=== PATIENT | male | born 1950 | race Caucasian/White ===

== ENCOUNTER 2018-01-28 20:22 | Inpatient (IN) ==
[2018-01-28] MEDS ORDERED: Naloxone 0.4 MG/ML INJ IVP PRN (23:49)
--- NOTE | 2018-01-29 | Internal Med History&Physical ---
<Glenn Dennis - Last Filed: 01/28/18 23:55> Date of Encounter: 01/28/18 Time of Encounter: 23:56 Internal Medicine - H&P: HPI Chief complaint: Slow heart rate Admitted From: Hospital to Hospital Transfer Plans for Post Hospital Care: Home History of present illness: Mr. Quintero is a 67 year old male presented to [facility] for slow heart rate. Patient was eating supper at 6 PM when he suddenly reported feeling "odd". He measured his blood pressure which was 180 systolic and his heart rate which was in the 30s. He denies chest pain, palpitations but reported some shortness of breath and nausea. Patient takes Coreg. He also denied vomiting, diaphoresis. He reports he his heart rate has never been this low before. After this he presented to [place] ER. EKG showed bradycardia with second-degree AV block type II. Patient did not require pacing. Cardiology was consulted and patient was requested to be transferred to the [place] ICU. Has a history of diastolic congestive heart failure diagnosed 4 years ago at [facility] where he had a left heart catheterization showing minimal coronary artery disease. His ejection fraction from echocardiogram in 2015 she is 50-55%. . Past Med Surg Social Fam HX - Past Medical History Medical history: arthritis (Psoriatic arthritis), CHF, GERD, hyperlipidemia, hypertension Psychiatric history: no psych history - Past Surgical History Surgical History: herniorrhaphy Additional surgical history: Left heart catheterization in 2013 - Social History Smoking Status: Former smoker Smokeless Tobacco Status: Yes Alcohol use: none Drug use: none - Family History Father Hx Family Cardiac Disorders: Yes Internal Medicine - H&P: Meds Aspirin 81 mg PO DAILY 04/03/16 [History] Atorvastatin Calcium [Lipitor] 40 mg PO HS 04/03/16 [History] Carvedilol [Coreg] 3.125 mg PO BID 04/03/16 [History] Furosemide [Lasix] 40 mg PO BID 04/03/16 [History] Lisinopril [Zestril] 10 mg PO DAILY 04/03/16 [History] Pantoprazole Sodium [Protonix] 40 mg PO DAILY 04/03/16 [History] Cetirizine HCl [All Day Allergy] 10 mg PO DAILY 09/15/17 [History] Metformin HCl [Fortamet] 500 mg PO BID 09/15/17 [History] Sulfasalazine [Azulfidine] 500 mg PO BID 09/15/17 [History] glipiZIDE [Glipizide] 10 mg PO BID 09/15/17 [History] Allopurinol [Zyloprim 100 MG] 100 mg PO DAILY 01/28/18 [History] 3 Allergy/AdvReac Type Severity Reaction Status Date / Time No Known Allergies Allergy Verified 09/29/17 13:10 All Systems PM: A 10-system review of systems was performed and is negative for pertinent findings except as documented above in the HPI. Review of systems: Constitutional: Denies fever, chills HEENT: Denies headache, vision changes, neck pain, sore throat, rhinorrhea Heart: Denies chest pain palpitations Lungs: Reports shortness of breath. Denies cough Abdomen: Denies abdominal pain nausea vomiting diarrhea Back: Denies back pain Kidney: Denies dysuria, hematuria Skin: Denies rash, lesions Extremities: Denies swelling, pain Neuro: Denies numbness and tingling Endocrine: Denies weight loss, weight gain, intolerance to hot or cold - Constitutional Vitals: Temp Pulse Resp BP Pulse Ox 98.4 F 66 18 147/91 95 01/28/18 23:04 01/28/18 23:04 01/28/18 23:04 01/28/18 23:04 01/28/18 23:04 Exam: General: Pleasant without distress HEENT: Head atraumatic, normocephalic, EOMI, PERRL, neck nontender to palpation , absent lymphadenopathy, Moist Mucous Membranes, Heart: Regular rate and rhythm with no murmur Lungs: Clear to auscultation bilaterally Abdomen: Soft nontender, nondistended positive bowel sounds Skin: warm and dry, absent rash Extremities: Absent pedal edema, Neuro: Cranial nerves II through XII intact, UE and LE sensation equal bilaterally, UE and LEstrength 5/5, alert oriented 3, Vascular: Pedal and radial pulses 2 out of 4 - Assessment and plan (1) Heart block AV second degree Current Visit: Yes Status: Acute Assessment and plan: 67-year-old male presented to [place] emergency department for bradycardia EKG showed rate of 34 with a second-degree AV block type II Cardiology was consulted and patient was transferred to [place] ICU for further evaluation and treatment Currently patient is regular rate and rhythm His troponin was within normal limits. Chest x-ray within normal limits Plan: Cardiology see patient in the morning. We will put patient on continuous telemetry. Discontinue home Coreg. Echocardiogram (2) History of hyperlipidemia Current Visit: Yes Status: Chronic Assessment and plan: Controlled Continue atorvastatin (3) Diabetes mellitus Current Visit: Yes Status: Chronic Assessment and plan: Ration has a history of type 2 diabetes mellitus [id number] He will on A1c 6.8 On metformin and glipizide Currently patient is nothing by mouth Qualifiers: Diabetes mellitus type: type 2 Diabetes mellitus rodent exterminator insulin use: without rodent exterminator use Diabetes mellitus complication status: without complication Qualified Code(s): E11.9 - Type 2 diabetes mellitus without complications (4) History of psoriatic arthritis Current Visit: Yes Status: Chronic Assessment and plan: Patient has a history of psoriatic arthritis We will continue sulfasalazine (5) Diastolic congestive heart failure Current Visit: Yes Status: Chronic Assessment and plan: Patient has a history of diastolic congestive heart failure Last echo was 2014 at the EF of 50-55% with diastolic dysfunction Patient is not an exacerbation We will continue his Lasix, lisinopril Repeating echocardiogram. Qualifiers: Heart failure chronicity: chronic Qualified Code(s): I50.32 - Chronic diastolic (congestive) heart failure (6) Thrombocytopenia Current Visit: Yes Status: Chronic Assessment and plan: Patient has a history of thrombocytopenia followed by oncology outpatient Oncology reports thrombocytopenia secondary to fatty liver disease associated with hypersplenism Patient is not having signs of bleeding or bruising and hemoglobin is stable. (7) History of gastroesophageal reflux (GERD) Current Visit: Yes Status: Chronic Assessment and plan: Controlled continue Protonix - Time Spent With Patient Total time spent is greater than 50% in coordination of care (as documented) at patient's floor/unit and/or counseling patient: <Kiana Colby - Last Filed: 01/29/18 02:46> Date of Encounter: 01/29/18 Internal Medicine - H&P: HPI History of present illness: Mr. Quintero is a 67 year old male All Systems PM: A 10-system review of systems was performed and is negative for pertinent findings except as documented above in the HPI. - Constitutional Vitals: Temp Pulse Resp BP Pulse Ox 98.4 F 54 16 122/85 95 01/28/18 23:04 01/29/18 02:00 01/29/18 02:00 01/29/18 02:00 01/29/18 02:00 - Assessment and plan (1) Heart block AV second degree Current Visit: Yes Status: Acute (2) Thrombocytopenia Current Visit: Yes Status: Chronic (3) History of hyperlipidemia Current Visit: Yes Status: Chronic (4) Diabetes mellitus Current Visit: Yes Status: Chronic Qualifiers: Diabetes mellitus type: type 2 Diabetes mellitus fpc insulin use: without rodent exterminator use Diabetes mellitus complication status: without complication Qualified Code(s): E11.9 - Type 2 diabetes mellitus without complications (5) History of psoriatic arthritis Current Visit: Yes Status: Chronic (6) Diastolic congestive heart failure Current Visit: Yes Status: Chronic Qualifiers: Heart failure chronicity: chronic Qualified Code(s): I50.32 - Chronic diastolic (congestive) heart failure (7) History of gastroesophageal reflux (GERD) Current Visit: Yes Status: Chronic - Time Spent With Patient Total time spent is greater than 50% in coordination of care (as documented) at patient's floor/unit and/or counseling patient: - Attending Attestation 62-year-old man who is admitted upon transfer from [facility] for bradycardia which started around 6 PM feeling unwell and on easy. The ER he was found to have a high blood pressure however his heart rate fluctuated in the 30s and 40s. He began any chest pain or palpitations but there was accompanying dyspnea that was short-lived. He was found to be in second-degree AV block. Cardiology was consulted and requested monitoring in the ICU for now pending their evaluation in the morning. Of note he has a history of coronary artery disease and diastolic heart failure. On arrival here he is clinically and hemodynamically stable also offering no complaints and joking around. His physical exam is grossly benign other than slow heart rate on auscultation. Heart rate currently in the 60s and systolic BP above 140. Nondiaphoretic and mentation is intact. We will continue cardiac monitoring and obtain an echo in the morning cardiology consultation requested. Beta blockers on hold for now. Case discussed with resident.
[2018-01-29] MEDS: *HR* Heparin 5,000 UNIT/ML VIAL SQ SCH ×4 (00:26→20:13)
[2018-01-29 03:39] LABS: VBG Ionized Calcium 1.19 mmol/L (1.15-1.35)
[2018-01-29] MEDS: Aspirin 81 MG TAB.CHEW PO SCH (09:07)
[2018-01-29] MEDS: Lisinopril 20 MG TABLET PO SCH (09:07)
[2018-01-29] MEDS: sulfaSALAzine 500 MG TABLET PO SCH ×2 (09:08→20:13)
[2018-01-29] MEDS: Furosemide 20 MG TABLET PO SCH ×2 (09:08→20:12)
--- NOTE | 2018-01-29 09:38 | Cardiology Consult Note ---
Date of Encounter: 01/29/18 Time of Encounter: 09:34 Assessment and Plan (1) Symptomatic bradycardia Current Visit: Yes Status: Acute Patient presents with evidence of symptomatic bradycardia, heart rate in the 30s and associated fatigue over the last several weeks. Patient denies lightheadedness, near-syncope, or syncope. ECG from outside ER demonstrates evidence of sinus rhythm, Mobitz type II AV block, right bundle branch block. Patient also has an underlying first-degree AV block. Beta vianney has been held. Avoid negative chronotropic agents. Continue telemetry. We will check TSH. Repeat TTE. Discussed the possibility of needing a pacemaker given underlying conduction disease and events of yesterday. Patient would be agreeable if necessary. We will monitor on telemetry for now and obtain further information. We will discuss with EP. Kwon to transfer to [facility]. (2) Nonischemic cardiomyopathy Current Visit: Yes Status: Acute History of a nonischemic cardiomyopathy, previous LHC in 2013 at [place]. LVEF recovered per reports in 2014. Recommend continue aspirin, statin, SANTOS inhibitor. Hold beta vianney for now given heart rate issues. Patient currently euvolemic on examination. Discussion w patient/family: The assessment and plan as outlined above was discussed with the patient and/or family members who expressed understanding and agreement. All questions were answered. Thank you for involving us in the care of your patient. Please call with any questions. History of Present Illness Consult date: 01/29/18 Requesting physician: Jaden Bryan Consult reason: Bradycardia Chief complaint: Bradycardia History of present illness: Mr. Quintero is a 67 year old male with a history of a resolved nonischemic cardiomyopathy. TTE at [place] in 12/2013 demonstrated an LVEF of 40-45%. LHC at [facility] [facility] in 2013 demonstrated [id number] nonobstructive CAD, EF 35%. TTE 01/2015 demonstrated an LVEF of 50-55%. Patient previously followed with Dr. Ornelas and was on aspirin/Coreg 3.125 twice daily/atorvastatin 40 mg daily/lisinopril 10 mg daily/Lasix 40 mg twice daily. Comorbidities include diabetes, obesity. Patient reports he was checking his blood pressure yesterday, which was significantly elevated to as high as 180 mmHg systolic. States his heart rate on the monitor read in the 30s. He grew increasingly concerned and reported to an outside ER. He does report fatigue over the last several weeks, but denies lightheadedness, near syncope, or syncope. Outside ECG demonstrates evidence of sinus rhythm, possible Mobitz type II AV block, and a right bundle branch block. He was transferred for further evaluation. Beta vianney was held. Heart rate stable overnight, but remained relatively low, sometimes in the 30- 40s. Blood pressure remained stable and he is awake/alert. Past Med Surg Social Fam HX - Past Medical History Medical history: arthritis (Psoriatic arthritis), CHF, GERD, hyperlipidemia, hypertension Psychiatric history: no psych history - Past Surgical History Surgical History: herniorrhaphy Additional surgical history: Left heart catheterization in 2014 - Social History Smoking Status: Former smoker Smokeless Tobacco Status: Yes Alcohol use: none Drug use: none - Family History Father Hx Family Cardiac Disorders: Yes Medications and Allergies Aspirin 81 mg PO DAILY 04/03/16 [History] Atorvastatin Calcium [Lipitor] 40 mg PO HS 04/03/16 [History] Carvedilol [Coreg] 3.125 mg PO BID 04/03/16 [History] Furosemide [Lasix] 40 mg PO BID 04/03/16 [History] Lisinopril [Zestril] 10 mg PO DAILY 04/03/16 [History] Pantoprazole Sodium [Protonix] 40 mg PO DAILY 04/03/16 [History] Cetirizine HCl [All Day Allergy] 10 mg PO DAILY 09/15/17 [History] Metformin HCl [Fortamet] 500 mg PO BID 09/15/17 [History] Sulfasalazine [Azulfidine] 500 mg PO BID 09/15/17 [History] glipiZIDE [Glipizide] 10 mg PO BID 09/15/17 [History] Allopurinol [Zyloprim 100 MG] 100 mg PO DAILY 01/28/18 [History] 3 Allergy/AdvReac Type Severity Reaction Status Date / Time No Known Allergies Allergy Verified 09/29/17 13:10 All Systems Review: The remainder of the systems were reviewed and are negative - Cardiovascular Cardiovascular: as per HPI Physical Examination Vital Signs, Last 4 Hours Temp Pulse Resp BP Pulse Ox 01/29/18 09:00 51 20 122/87 94 01/29/18 08:00 62 20 123/70 95 01/29/18 07:00 98.3 F 54 20 117/71 94 01/29/18 06:00 53 17 126/81 95 General: Conversant, No Apparent Distress HEENT: Atraumatic, Normocephaly, Mucus Membranes Moist Neck: No JVD, Normal carotid pulses Cardiac: Reg Rate and Rhythm, Normal S1 and S2, No Murmur Lungs: Normal Breath Sounds, No Wheeze, Rales, Rhonchi Neuro: Alert and responsive, No focal deficits noted Abdomen: Soft, Non-Tender Skin: No rashes noted on visualized skin Musculoskeletal: No Chest Wall Tenderness Extremities: No Clubbing, No Cyanosis, No Edema Results Lab Results 01/29/18 00:19 Magnesium 2.1 - Imaging and Cardiology Chest Xray: report reviewed Echo: report reviewed - EKG Interpretation EKG results cardiology: personally reviewed Consult Discharge Plan - Plan Referrals: Cuhy Chowdary MD [Primary Care Provider] -
--- NOTE | 2018-01-29 10:25 | Internal Med Progress Note ---
<Jaden Bryan - Last Filed: 01/29/18 17:26> Hospitalist Progress Note - Encounter Date of Encounter: 01/29/18 - Exam Vitals: Temp Pulse Resp BP Pulse Ox 98.7 F 51 20 142/84 94 01/29/18 15:00 01/29/18 16:00 01/29/18 16:00 01/29/18 16:00 01/29/18 16:00 - Assessment and Plan (1) Heart block AV second degree Current Visit: Yes Status: Acute (2) Diastolic congestive heart failure Current Visit: Yes Status: Chronic (3) Diabetes mellitus Current Visit: Yes Status: Chronic (4) Thrombocytopenia Current Visit: Yes Status: Chronic (5) Psoriatic arthritis Current Visit: Yes Status: Chronic (6) GERD (gastroesophageal reflux disease) Current Visit: Yes Status: Chronic Assessment and Plan: Home meds. (7) Hyperlipidemia Current Visit: Yes Status: Chronic (8) Tobacco dependence due to chewing tobacco Current Visit: Yes Status: Chronic Assessment and Plan: PRN nicotine gum. - Time Spent with Patient Total time spent is greater than 50% in coordination of care (as documented) at patient's floor/unit and/or counseling patient: Internal Medicine: Result - Impressions Impressions Echocardiogram 01/29/18 07:00 Impressions: HR 40-50s. LVEF 50%. Not all LV segments were well visualized, but overall LVEF appears low normal. Normal LV chamber size and wall thickness. Atypical septal motion consistent with bundle branch block. Mild left ventricular diastolic dysfunction. Normal right ventricular structure and function. Unable to estimate RVSP due to lack of TR jet. No significant valvular dysfunction. Findings: Study Quality * Technically sub-optimal due to poor echocardiographic windows. ECG Findings * Sinus rhythm with BBB. Left Ventricle * LVEF 50%. Not all LV segments were well visualized, but overall LVEF appears low normal. * Normal LV chamber size and wall thickness. * Atypical septal motion consistent with bundle branch block. * Mild left ventricular diastolic dysfunction. Right Ventricle * Normal right ventricular structure and function. Left Atrium * Mild to moderately dilated left atrium. Right Atrium * Mildly dilated right atrium. Aortic Valve * Aortic valve not well visualized. * No aortic regurgitation. * No aortic stenosis. Mitral Valve * Normal mitral valve structure and function. * No mitral regurgitation. * No mitral stenosis. Tricuspid Valve * Normal tricuspid valve structure and function. * No tricuspid regurgitation. * Unable to estimate RVSP due to lack of TR jet. Pulmonic Valve * Pulmonic valve not well visualized. * No pulmonic regurgitation. Aorta * Normally sized aortic root. Pericardium * The pericardium appears normal. IVC * The IVC is not well evaluated. Pulmonary Artery * Normal visualized portions of the main pulmonary artery. Consult Discharge Plan - Plan Referrals: Chuy Chowdary MD [Primary Care Provider] - - Attending Attestation I examined this patient and my medical decision-making was reviewed with the Resident Physician on 01/29/18. I agree with the documented findings, disposition and treatment plan as described except to the extent set forth below. Mr Quintero is currently admitted for bradycardia and heart block. He remains moderate to high risk due to potential for worsening clinical status. Mr Quintero is resting comfortably at this time. No fever or chills. Concerned about taking insulin. No CP. No headache or other neuro symptoms. No dyspnea at this time. Exam Alert Comfortable Mucus membranes dry Heart irreg - some periods of kylah Lungs clear Abd obese but soft and nontender No edema I/P 1. Bradycardia - appears to have episodes of Mobitz type 2 block. Monitor off beta vianney 2. Cardiomyopathy 3. DM Further diagnoses and plan as above. To transfer to . <Omar Balderas - Last Filed: 01/29/18 19:33> Hospitalist Progress Note - Encounter Date of Encounter: 01/29/18 Time of Encounter: 11:00 - Subjective Interval History: Mr. Quintero a 70-year-old male the past medical history of diabetes (last A1C : 6.8) , gout, obesity,psoriatic arthritis, and nonischemic cardio myopathy ([facility] 2013, currently on aspirin, Coreg 3.125 twice a day, atorvastatin , lisinopril, Lasix). He came to the ED at the [facility] because of he felt that his heart rate was in 30s. He endorses that he was having supper at 6 PM he felt suddenly short of breath, lightheaded and nauseous. He also noticed that his blood pressure was elevated. Patient denied any chest pain, vomiting, diaphoresis. He denied any near fainting or fainting episodes, fatigue, chest pain, confusion or memory problems. History of diastolic heart failure diagnosed 4 years ago, s/p left heart catheter 2 years ago which demonstrated mild to moderate nonobstructive coronary artery disease. His most recent TTE showed an LVEF of 50-55%. - Exam Vitals: Temp Pulse Resp BP Pulse Ox 98.2 F 51 20 122/87 94 01/29/18 10:03 01/29/18 09:00 01/29/18 09:00 01/29/18 09:00 01/29/18 09:00 Exam: General: Pleasant without distress, A&O 3 HEENT: Head atraumatic, normocephalic, EOMI, PERRL, neck nontender to palpation , absent lymphadenopathy, Moist Mucous Membranes, Heart: Regular rate and rhythm with no murmur, no bradycardic currently Lungs: Clear to auscultation bilaterally Abdomen: Soft nontender, nondistended positive bowel sounds Skin: warm and dry, absent rash Extremities: Absent pedal edema, Neuro: Cranial nerves II through XII intact, UE and LE sensation equal bilaterally, UE and LEstrength 5/5, alert oriented 3, Vascular: Pedal and radial pulses 2 out of 4 - Assessment and Plan (1) Symptomatic bradycardia Current Visit: Yes Status: Acute Assessment and Plan: - likely multifactorial. Patient is on Coreg 3.125, has a history of nonischemic cardiomyopathy, diastolic dysfunction. - Patient presented with heart rate in 30s and chronic fatigue. ECG at an outside facility showed possible Mobitz type II AV block, and a right bundle- branch Jomar. - Patient currently denies shortness of breath, tenderness. He is in A&O 3 - As per the cardiology the plan is to potentially get a pacemaker on him coming Wednesday. TSH and TTE pending. Discontinue Coreg, and avoid any chronotropic agents. (2) Nonischemic cardiomyopathy Current Visit: Yes Status: Acute Assessment and Plan: -Secondary to his risk factors like diabetes and obesity. - He has a history of non-ischemic cardiomyopathy. His LHC at the [place] showed mild to moderate nonobstructive CAD with an EF of 35%. Repeat TTE showed an LVEF of 50-55 %. - Repeat TTE. Hold beta blockers. Continue aspirin, statins and SANTOS inhibitor. (3) Gout Current Visit: Yes Status: Acute Assessment and Plan: - Patient was recently diagnosed with gout. -Continue on his home medications. Allopurinol.. (4) Diabetes mellitus Current Visit: Yes Status: Chronic Assessment and Plan: - Has a history of type 2 diabetes. With the most recent A1c is 6.8. - His glucose is 142, withholding his home medications. He is on low-dose sliding scale insulin with goal glucose between 130-180. (5) Diastolic congestive heart failure Current Visit: Yes Status: Chronic Assessment and Plan: -Patient has a history of diastolic congestive heart failure. His most recent TTE showed an LVEF of 50-55%. - Patient is a home Lasix, and Coreg 3.125. -Physical exam I did not notice any rales, pedal edema, JVD or S3 heart sound. Patient denies any history of DIMAS, paroxysmal nocturnal dyspnea, orthopnea. - Currently holding Coreg. Continue his to be on 40 mg Lasix. Strict I's and Os. (6) Psoriatic arthritis Current Visit: Yes Status: Chronic Assessment and Plan: - Patient has a history of sliding arthritis. -Continue his home medications :sulfasalazine - Time Spent with Patient Total time spent is greater than 50% in coordination of care (as documented) at patient's floor/unit and/or counseling patient: <Jaden Bryan - Last Filed: 01/29/18 17:26> (2) Diastolic congestive heart failure Qualifiers: Heart failure chronicity: chronic Qualified Code(s): I50.32 - Chronic diastolic (congestive) heart failure (3) Diabetes mellitus Qualifiers: Diabetes mellitus type: type 2 Diabetes mellitus alf insulin use: without superintendent container terminal use Diabetes mellitus complication status: without complication Qualified Code(s): E11.9 - Type 2 diabetes mellitus without complications (6) GERD (gastroesophageal reflux disease) Qualifiers: Esophagitis presence: esophagitis presence not specified Qualified Code(s): K21.9 - Gastro-esophageal reflux disease without esophagitis (7) Hyperlipidemia Qualifiers: Hyperlipidemia type: mixed hyperlipidemia Qualified Code(s): E78.2 - Mixed hyperlipidemia <Omar Balderas - Last Filed: 01/29/18 19:33> (4) Diabetes mellitus Qualifiers: Diabetes mellitus type: type 2 Diabetes mellitus alf insulin use: without superintendent container terminal use Diabetes mellitus complication status: without complication Qualified Code(s): E11.9 - Type 2 diabetes mellitus without complications (5) Diastolic congestive heart failure Qualifiers: Heart failure chronicity: chronic Qualified Code(s): I50.32 - Chronic diastolic (congestive) heart failure
[2018-01-29] MEDS ORDERED: Dextrose Gel 15 GM/37.5 ML TUBE PO PRN ×2 (10:48)
[2018-01-29] MEDS ORDERED: D5% in Water 1,000 ML IVC PRN (10:48)
[2018-01-29] MEDS ORDERED: *HR* Dextrose 50 % in Water (Syg) 50 ML SYRINGE IVP PRN (10:48)
[2018-01-29] MEDS ORDERED: Nicotine 2 MG GUM BC PRN (12:15)
[2018-01-29] MEDS: Insulin LISPRO 300 UNITS/3 ML VIAL SQ SCH ×2 (17:09→20:12)
[2018-01-29] MEDS ORDERED: Insulin LISPRO 300 UNITS/3 ML VIAL SQ SCH (21:00)
[2018-01-30 04:25] LABS: Basophils # 0.1 K/mcL (0.0-0.2); Eosinophils # 0.2 K/mcL (0.0-0.6); Eosinophils % 2.9 %; Hematocrit 37.4 % (37.5-50.1); Hemoglobin 12.3 g/dL (12.9-16.9); Immature Granulocytes % 0.5 % (0-4); Immature Platelets 19.7 % (1.1-6.1); Lymphocytes # 1.8 K/mcL (0.6-4.6); Lymphocytes % 30.1 %; Mean Corpuscular HGB Conc 32.9 g/dL (31.6-35.5); Mean Corpuscular Volume 85.2 fL (83.0-100.0); Mean Platelet Volume 12.9 fL (9.4-12.4); Monocytes # 0.6 K/mcL (0.0-1.3); Monocytes % 9.8 %; Neutrophils # 3.2 K/mcL (1.6-8.9); Red Blood Count 4.39 M/mcL (4.19-5.50); Red Cell Distribution Width 15.7 % (11.5-14.5); Segmented Neutrophils % 55.7 %
[2018-01-30 04:27] LABS: Platelet Count 70 K/mcL (140-400)
[2018-01-30 04:49] LABS: BUN/Creatinine Ratio 14 (6-26); Blood Urea Nitrogen 12 mg/dL (8-23); Calcium 9.1 mg/dL (8.6-10.3); Carbon Dioxide 29 mEq/L (23-29); Chloride 103 mEq/L (98-107); Glucose 164 mg/dL (70-105); Osmolality,Calculated 291 (280-300); Potassium 3.8 mEq/L (3.5-5.1); Sodium 139 mEq/L (136-145); eGFR For Non-African Americans > 60 (> 60)
[2018-01-30] MEDS: *HR* Heparin 5,000 UNIT/ML VIAL SQ SCH (05:55)
[2018-01-30] MEDS: Furosemide 20 MG TABLET PO SCH ×2 (08:16→20:01)
[2018-01-30] MEDS: Aspirin 81 MG TAB.CHEW PO SCH (08:16)
[2018-01-30] MEDS: sulfaSALAzine 500 MG TABLET PO SCH ×2 (08:16→20:01)
[2018-01-30] MEDS: Lisinopril 20 MG TABLET PO SCH (08:17)
[2018-01-30] MEDS: Insulin LISPRO 300 UNITS/3 ML VIAL SQ SCH (08:18)
--- NOTE | 2018-01-30 09:22 | Internal Med Progress Note ---
<Jaden Bryan - Last Filed: 01/30/18 17:16> Hospitalist Progress Note - Encounter Date of Encounter: 01/30/18 - Exam Vitals: Temp Pulse Resp BP Pulse Ox 98.4 F 76 18 124/80 95 01/30/18 16:26 01/30/18 16:00 01/30/18 16:00 01/30/18 16:00 01/30/18 16:00 - Assessment and Plan (1) Heart block AV second degree Current Visit: Yes Status: Suspected (2) Diastolic congestive heart failure Current Visit: Yes Status: Chronic (3) Diabetes mellitus Current Visit: Yes Status: Chronic (4) Thrombocytopenia Current Visit: Yes Status: Chronic (5) Psoriatic arthritis Current Visit: Yes Status: Chronic (6) GERD (gastroesophageal reflux disease) Current Visit: Yes Status: Chronic (7) Hyperlipidemia Current Visit: Yes Status: Chronic (8) Tobacco dependence due to chewing tobacco Current Visit: Yes Status: Chronic - Time Spent with Patient Total time spent is greater than 50% in coordination of care (as documented) at patient's floor/unit and/or counseling patient: Internal Medicine: Result - Labs CBC & Chem 7: 01/30/18 04:00 01/30/18 04:00 Labs: Short CBC 01/30/18 Range/Units 04:00 WBC 5.8 (4.3-11.1) K/mcL Hgb 12.3 L (12.9-16.9) g/dL Hct 37.4 L (37.5-50.1) % Plt Count 70 L (140-400) K/mcL Neutrophils # 3.2 (1.6-8.9) K/mcL BMP 01/30/18 04:00 Sodium 139 Potassium 3.8 Chloride 103 Carbon Dioxide 29 BUN 12 Creatinine 0.87 Glucose 164 H Calcium 9.1 Consult Discharge Plan - Plan Referrals: Chuy Chowdary MD [Primary Care Provider] - - Attending Attestation I examined this patient and my medical decision-making was reviewed with the Resident Physician on 01/30/18. I agree with the documented findings, disposition and treatment plan as described except to the extent set forth below. Mr Quintero is currently admitted for AV block. He remains moderate to high risk due to potential for worsening clinical status. Mr Quintero is resting comfortably. No fever or chills. Heart rate remains in 40s at rest. No CP or SOB Exam alert and comfortable Mucus membranes dry Heart kylah and irreg No wheeze Abd soft No edema I/P 1 AV block - monitoring on tele. Hold Coreg. EP consult Further diagnoses and plan as above. <Severo Balderasbh - Last Filed: 01/30/18 19:25> Hospitalist Progress Note - Encounter Date of Encounter: 01/30/18 Time of Encounter: 11:30 - Subjective Interval History: 01/30 No acute events overnight. Patient is resting comfortably on the bed satting at 98%. He endorses no chest pain, palpitation, shortness of breath. Currently stable for transfer to the floor. Lantus to see an dumb waiter operator sometime next week for a potential pacemaker. 01/29 Mr. Quintero a 70-year-old male the past medical history of diabetes (last A1C : 6.8) , gout, obesity,psoriatic arthritis, and nonischemic cardio myopathy ([facility] 2013, currently on aspirin, Coreg 3.125 twice a day, atorvastatin , lisinopril, Lasix). He came to the ED at the [facility] because of he felt that his heart rate was in 30s. He endorses that he was having supper at 6 PM he felt suddenly short of breath, lightheaded and nauseous. He also noticed that his blood pressure was elevated. Patient denied any chest pain, vomiting, diaphoresis. He denied any near fainting or fainting episodes, fatigue, chest pain, confusion or memory problems. History of diastolic heart failure diagnosed 4 years ago, s/p left heart catheter 2 years ago which demonstrated mild to moderate nonobstructive coronary artery disease. His most recent TTE showed an LVEF of 50-55%. - Exam Vitals: Temp Pulse Resp BP Pulse Ox 98.2 F 75 18 106/65 95 01/30/18 08:24 01/30/18 07:49 01/30/18 06:00 01/30/18 06:00 01/30/18 06:00 Exam: General: Pleasant without distress, A&O 3 HEENT: Head atraumatic, normocephalic, EOMI, PERRL, neck nontender to palpation , absent lymphadenopathy, Moist Mucous Membranes, Heart: Regular rate and rhythm with no murmur, no bradycardia currently Lungs: Clear to auscultation bilaterally Abdomen: Soft nontender, nondistended positive bowel sounds Skin: warm and dry, absent rash Extremities: Absent pedal edema, Neuro: Cranial nerves II through XII intact, UE and LE sensation equal bilaterally, UE and LEstrength 5/5, alert oriented 3, Vascular: Pedal and radial pulses 2 out of 4 - Assessment and Plan (1) Symptomatic bradycardia Current Visit: Yes Status: Acute Assessment and Plan: - Patient presented with symptomatic bradycardia with heart rate in 30s, today heart rate has gone up to 70s -ECG at an outside facility showed possible Mobitz type II AV block, and a right bundle-branch Jomar. - Currently denies any acute distress, no shortness of breath, chest pain. He is in O 3 satting at 96% on room air. -Cardiology on board. EP will be consulted for a pacemaker. - Is currently stable to be transferred from ICU to the floor, continue telemetry. (2) Nonischemic cardiomyopathy Current Visit: Yes Status: Acute Assessment and Plan: -Secondary to his risk factors like diabetes and obesity. - He has a history of non-ischemic cardiomyopathy. His LHC at the [place] showed mild to moderate nonobstructive CAD with an EF of 35%. Most recent TTE showed an LVEF of 50 % with no significant valvular dysfunction. - Hold beta blockers. Continue aspirin, statins and SANTOS inhibitor. (3) Gout Current Visit: Yes Status: Acute Assessment and Plan: -Patient was recently diagnosed with gout. -Continue on his home medications. Allopurinol.. (4) Diabetes mellitus Current Visit: Yes Status: Chronic Assessment and Plan: - Has a history of type 2 diabetes. With the most recent A1c is 6.8. - His glucose is 164 today, withholding his home medications. He is on low- dose sliding scale insulin with goal glucose between 130-180. (5) Diastolic congestive heart failure Current Visit: Yes Status: Chronic Assessment and Plan: -Patient has a history of diastolic congestive heart failure. His most recent TTE showed an LVEF of 50-55%. - Patient is a home Lasix, and Coreg 3.125. Current Is/Os: 200/1125. -Physical exam I did not notice any rales, pedal edema, JVD or S3 heart sound. Patient denies any history of DIMAS, paroxysmal nocturnal dyspnea, orthopnea. - Currently holding Coreg. Continue to be on 40 mg Lasix. Strict I's and Os. (6) Psoriatic arthritis Current Visit: Yes Status: Chronic Assessment and Plan: - Patient has a history of sliding arthritis. -Continue his home medications :sulfasalazine - Time Spent with Patient Total time spent is greater than 50% in coordination of care (as documented) at patient's floor/unit and/or counseling patient: Internal Medicine: Result - Labs CBC & Chem 7: 01/30/18 04:00 01/30/18 04:00 Labs: Short CBC 01/30/18 Range/Units 04:00 WBC 5.8 (4.3-11.1) K/mcL Hgb 12.3 L (12.9-16.9) g/dL Hct 37.4 L (37.5-50.1) % Plt Count 70 L (140-400) K/mcL Neutrophils # 3.2 (1.6-8.9) K/mcL BMP 01/30/18 04:00 Sodium 139 Potassium 3.8 Chloride 103 Carbon Dioxide 29 BUN 12 Creatinine 0.87 Glucose 164 H Calcium 9.1 - Impressions Impressions Echocardiogram 01/29/18 07:00 Impressions: HR 40-50s. LVEF 50%. Not all LV segments were well visualized, but overall LVEF appears low normal. Normal LV chamber size and wall thickness. Atypical septal motion consistent with bundle branch block. Mild left ventricular diastolic dysfunction. Normal right ventricular structure and function. Unable to estimate RVSP due to lack of TR jet. No significant valvular dysfunction. Findings: Study Quality * Technically sub-optimal due to poor echocardiographic windows. ECG Findings * Sinus rhythm with BBB. Left Ventricle * LVEF 50%. Not all LV segments were well visualized, but overall LVEF appears low normal. * Normal LV chamber size and wall thickness. * Atypical septal motion consistent with bundle branch block. * Mild left ventricular diastolic dysfunction. Right Ventricle * Normal right ventricular structure and function. Left Atrium * Mild to moderately dilated left atrium. Right Atrium * Mildly dilated right atrium. Aortic Valve * Aortic valve not well visualized. * No aortic regurgitation. * No aortic stenosis. Mitral Valve * Normal mitral valve structure and function. * No mitral regurgitation. * No mitral stenosis. Tricuspid Valve * Normal tricuspid valve structure and function. * No tricuspid regurgitation. * Unable to estimate RVSP due to lack of TR jet. Pulmonic Valve * Pulmonic valve not well visualized. * No pulmonic regurgitation. Aorta * Normally sized aortic root. Pericardium * The pericardium appears normal. IVC * The IVC is not well evaluated. Pulmonary Artery * Normal visualized portions of the main pulmonary artery. <Jaden Bryan - Last Filed: 01/30/18 17:16> (2) Diastolic congestive heart failure Qualifiers: Heart failure chronicity: chronic Qualified Code(s): I50.32 - Chronic diastolic (congestive) heart failure (3) Diabetes mellitus Qualifiers: Diabetes mellitus type: type 2 Diabetes mellitus senior care insulin use: without terminal block assembler use Diabetes mellitus complication status: without complication Qualified Code(s): E11.9 - Type 2 diabetes mellitus without complications (6) GERD (gastroesophageal reflux disease) Qualifiers: Esophagitis presence: esophagitis presence not specified Qualified Code(s): K21.9 - Gastro-esophageal reflux disease without esophagitis (7) Hyperlipidemia Qualifiers: Hyperlipidemia type: mixed hyperlipidemia Qualified Code(s): E78.2 - Mixed hyperlipidemia <Omar Balderas - Last Filed: 01/30/18 19:25> (4) Diabetes mellitus Qualifiers: Diabetes mellitus type: type 2 Diabetes mellitus terminal block assembler insulin use: without senior care use Diabetes mellitus complication status: without complication Qualified Code(s): E11.9 - Type 2 diabetes mellitus without complications (5) Diastolic congestive heart failure Qualifiers: Heart failure chronicity: chronic Qualified Code(s): I50.32 - Chronic diastolic (congestive) heart failure
[2018-01-30] MEDS ORDERED: Naloxone 0.4 MG/ML INJ IVP PRN (09:45)
--- NOTE | 2018-01-30 11:38 | Cardiology Progress Note ---
Date of Encounter: 01/30/18 Time of Encounter: 11:34 Assessment and Plan (1) Symptomatic bradycardia Current Visit: Yes Status: Acute Symptomatic bradycardia, heart rate in the 30s and associated fatigue over the last several weeks. No syncope or near syncope. ECG from outside ER demonstrates evidence of sinus rhythm, Mobitz type II AV block. Baseline first degree AV block, bundle branch block. Continue to hold BB and avoid negative chronotropic agents. HR has remained stable in 50s. Continue telemetry. Transfer orders placed for 2N or 2NE - awaiting bed. Plan for EP consult for possible pacemaker. Given history of NICMP and nonobstructive CAD, patient should ideally be on BB therapy if able. (2) Nonischemic cardiomyopathy Current Visit: Yes Status: Acute History of a nonischemic cardiomyopathy, previous LHC in 2013 at [place]. LVEF remains recovered - TTE yesterday, LVEF 50%. Recommend continue aspirin, statin, SANTOS inhibitor. Hold beta vianney for now given heart rate issues. Patient currently euvolemic on examination. Discussion w patient/family: The assessment and plan as outlined above was discussed with the patient and/or family members who expressed understanding and agreement. All questions were answered. Thank you for involving us in the care of your patient. Please call with any questions. Subjective Principal diagnosis: Bradycardia Interval history: Overall, HR improved - 50 to 60 on telemetry. No lightheahdedness, near syncope, or syncope reported. Baseline conduction abnormalities remain - first degree AV block, bundle branch block. Objective Vital Signs, Last 4 Hours Temp Pulse Resp BP Pulse Ox 01/30/18 10:00 53 16 123/86 96 01/30/18 08:24 98.2 F 01/30/18 08:00 56 18 138/77 95 01/30/18 07:49 75 General: Conversant, No Apparent Distress HEENT: Atraumatic, Normocephaly, Mucus Membranes Moist Neck: No JVD, Normal carotid pulses Cardiac: Reg Rate and Rhythm, Normal S1 and S2, No Murmur Lungs: Normal Breath Sounds, No Wheeze, Rales, Rhonchi Neuro: Alert and responsive, No focal deficits noted Abdomen: Soft, Non-Tender Skin: No rashes noted on visualized skin Musculoskeletal: No Chest Wall Tenderness Extremities: No Clubbing, No Cyanosis, No Edema Results 01/30/18 04:00 01/30/18 04:00 Lab Results 01/30/18 01/30/18 04:00 04:00 WBC 5.8 Hgb 12.3 L Hct 37.4 L Plt Count 70 L Sodium 139 Potassium 3.8 Chloride 103 Carbon Dioxide 29 BUN 12 Creatinine 0.87 Glucose 164 H Calcium 9.1 - Imaging and Cardiology Echo: report reviewed - EKG Interpretation EKG results cardiology: personally reviewed Consult Discharge Plan - Plan Referrals: Chuy Chowdary MD [Primary Care Provider] -
[2018-01-31 05:57] LABS: BUN/Creatinine Ratio 13 (6-26); Blood Urea Nitrogen 11 mg/dL (8-23); Calcium 9.2 mg/dL (8.6-10.3); Carbon Dioxide 29 mEq/L (23-29); Chloride 103 mEq/L (98-107); Glucose 165 mg/dL (70-105); Osmolality,Calculated 291 (280-300); Potassium 3.8 mEq/L (3.5-5.1); Sodium 139 mEq/L (136-145); eGFR For Non-African Americans > 60 (> 60)
--- NOTE | 2018-01-31 08:27 | Internal Med Progress Note ---
<Ferny Reece - Last Filed: 01/31/18 13:23> Hospitalist Progress Note - Encounter Date of Encounter: 01/31/18 Time of Encounter: 09:45 - Subjective Interval History: Mr. Quintero, here for bradycardia with mobitz type 2 HB, no events overnight, is pleasant, denies lightheadedness, chest pain, or dyspnea. Afebrile, no calf tenderness. - Exam Vitals: Temp Pulse Resp BP Pulse Ox 98.6 F 67 18 142/75 96 01/31/18 07:43 01/31/18 07:43 01/31/18 07:43 01/31/18 07:43 01/31/18 07:43 Exam: General: Pleasant without distress, A&O 3, answers questions thoughfully HEENT: Head atraumatic, normocephalic, EOMI, PERRL, neck nontender to palpation , absent lymphadenopathy, Moist Mucous Membranes, Heart: bradycardic in the 50s, no JVD Lungs: Clear to auscultation bilaterally, no rales Abdomen: Soft nontender, nondistended positive bowel sounds Skin: warm and dry, absent rash Extremities: no pedal edema Neuro: Cranial nerves II through XII intact, UE and LE sensation equal bilaterally, UE and LEstrength 5/5, alert oriented 3, Vascular: Pedal and radial pulses 2 out of 4 - Assessment and Plan (1) Heart block AV second degree Current Visit: Yes Status: Suspected Assessment and Plan: Currently HR in low 50s 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 continued to do so prior to admission with complaint of mild fatigue P: Continuing to hold BB, is on telemetry, Cardiology following with EP consult planned for poss PPM, echo recently shows LVEF 50% (2) Diastolic congestive heart failure Current Visit: Yes Status: Chronic Assessment and Plan: [facility] 2013 thermal shows nonischemic cardiomyopathy Continuing asa, statin, paul-i (3) Hyperlipidemia Current Visit: Yes Status: Chronic Assessment and Plan: hx hyperlipidemia on Lipitor 40mg po hs (4) Tobacco dependence due to chewing tobacco Current Visit: Yes Status: Chronic Assessment and Plan: patient currently denies cravings or desire of NRT states he is fine with chewing non-nicotine gum (5) Diabetes mellitus Current Visit: Yes Status: Chronic Assessment and Plan: on low-dose SSI (6) History of psoriatic arthritis Current Visit: Yes Status: Chronic Assessment and Plan: Patient has a history of sliding arthritis Continue his home medications :sulfasalazine - Time Spent with Patient Total time spent is greater than 50% in coordination of care (as documented) at patient's floor/unit and/or counseling patient: Greater than 35 minutes Internal Medicine: Result - Labs CBC & Chem 7: 01/30/18 04:00 01/31/18 04:54 Labs: BMP 01/31/18 04:54 Sodium 139 Potassium 3.8 Chloride 103 Carbon Dioxide 29 BUN 11 Creatinine 0.85 Glucose 165 H Calcium 9.2 Consult Discharge Plan - Plan Referrals: Chuy Chowdary MD [Primary Care Provider] - <Jaden Bryan - Last Filed: 01/31/18 15:40> Hospitalist Progress Note - Encounter Date of Encounter: 01/31/18 - Exam Vitals: Temp Pulse Resp BP Pulse Ox 98.1 F 63 18 123/80 94 01/31/18 15:19 01/31/18 15:19 01/31/18 15:19 01/31/18 15:19 01/31/18 15:19 - Assessment and Plan (1) Heart block AV second degree Current Visit: Yes Status: Suspected (2) Diastolic congestive heart failure Current Visit: Yes Status: Chronic (3) Diabetes mellitus Current Visit: Yes Status: Chronic (4) Thrombocytopenia Current Visit: Yes Status: Chronic (5) Psoriatic arthritis Current Visit: Yes Status: Chronic (6) GERD (gastroesophageal reflux disease) Current Visit: Yes Status: Chronic (7) Hyperlipidemia Current Visit: Yes Status: Chronic (8) Tobacco dependence due to chewing tobacco Current Visit: Yes Status: Chronic - Time Spent with Patient Total time spent is greater than 50% in coordination of care (as documented) at patient's floor/unit and/or counseling patient: Internal Medicine: Result - Labs CBC & Chem 7: 01/30/18 04:00 01/31/18 04:54 Labs: BMP 01/31/18 04:54 Sodium 139 Potassium 3.8 Chloride 103 Carbon Dioxide 29 BUN 11 Creatinine 0.85 Glucose 165 H Calcium 9.2 - Attending Attestation I examined this patient and my medical decision-making was reviewed with the Resident Physician on 01/31/18. I agree with the documented findings, disposition and treatment plan as described except to the extent set forth below. Mr Quintero is currently admitted for heart block. He is awaiting EP consult. He remains moderate to high risk due to potential for worsening clinical status. Mr Quintero is feeling OK. His resting heart rate in 40s. No fever or chills. No CP or SOB. BP has been okay as well. Exam alert Comfortable Mucus membranes dry Heart kylah No wheeze No edema I/P 1. Heart block 2. NICM 3. DM Further diagnoses and plan as above. <Ferny Reece - Last Filed: 01/31/18 13:23> (2) Diastolic congestive heart failure Qualifiers: Heart failure chronicity: chronic Qualified Code(s): I50.32 - Chronic diastolic (congestive) heart failure (3) Hyperlipidemia Qualifiers: Hyperlipidemia type: mixed hyperlipidemia Qualified Code(s): E78.2 - Mixed hyperlipidemia (5) Diabetes mellitus Qualifiers: Diabetes mellitus type: type 2 Diabetes mellitus alf insulin use: without alf use Diabetes mellitus complication status: without complication Qualified Code(s): E11.9 - Type 2 diabetes mellitus without complications <Jaden Bryan - Last Filed: 01/31/18 15:40> (2) Diastolic congestive heart failure Qualifiers: Heart failure chronicity: chronic Qualified Code(s): I50.32 - Chronic diastolic (congestive) heart failure (3) Diabetes mellitus Qualifiers: Diabetes mellitus type: type 2 Diabetes mellitus alf insulin use: without alf use Diabetes mellitus complication status: without complication Qualified Code(s): E11.9 - Type 2 diabetes mellitus without complications (6) GERD (gastroesophageal reflux disease) Qualifiers: Esophagitis presence: esophagitis presence not specified Qualified Code(s): K21.9 - Gastro-esophageal reflux disease without esophagitis (7) Hyperlipidemia Qualifiers: Hyperlipidemia type: mixed hyperlipidemia Qualified Code(s): E78.2 - Mixed hyperlipidemia
[2018-01-31] MEDS: Aspirin 81 MG TAB.CHEW PO SCH (08:48)
[2018-01-31] MEDS: Lisinopril 20 MG TABLET PO SCH (08:48)
[2018-01-31] MEDS: sulfaSALAzine 500 MG TABLET PO SCH ×2 (08:49→21:40)
[2018-01-31] MEDS: Furosemide 20 MG TABLET PO SCH ×2 (08:49→21:39)
--- NOTE | 2018-01-31 10:02 | Cardiology Progress Note ---
Date of Encounter: 01/31/18 Time of Encounter: 10:00 Assessment and Plan (1) Symptomatic bradycardia Current Visit: Yes Status: Acute Symptomatic bradycardia, heart rate in the 30s and associated fatigue over the last several weeks. No syncope or near syncope. Baseline first degree AV block, bundle branch block. Heart rate has improved with holding beta vianney. Continue to hold BB and avoid negative chronotropic agents. Continue telemetry. Consult EP to establish, consider pacemaker. Given significant baseline conduction disease, patient at risk for ongoing HR related issues. Not to mention his EF has improved on low dose BB therapy over past 4 years ( NICMP), currently unable to tolerate. (2) Nonischemic cardiomyopathy Current Visit: Yes Status: Acute History of a nonischemic cardiomyopathy, previous LHC in 2013 at [place]. LVEF remains recovered - TTE yesterday, LVEF 50%. Recommend continue aspirin, statin, SANTOS inhibitor. Hold beta vianney for now given heart rate issues. Patient currently euvolemic on examination. Discussion w patient/family: The assessment and plan as outlined above was discussed with the patient and/or family members who expressed understanding and agreement. All questions were answered. Thank you for involving us in the care of your patient. Please call with any questions. Subjective Principal diagnosis: Bradycardia Interval history: Overall, patient continues to do well. Heart rate 40s upon walking into the room, but increase to 50s to 60s during our conversation. No symptoms reported. Objective Vital Signs, Last 4 Hours Temp Pulse Resp BP Pulse Ox 01/31/18 07:43 98.6 F 67 18 142/75 96 General: Conversant, No Apparent Distress HEENT: Atraumatic, Mucus Membranes Moist Neck: No JVD, Normal carotid pulses Cardiac: Reg Rate and Rhythm, Normal S1 and S2, No Murmur Lungs: Normal Breath Sounds, No Wheeze, Rales, Rhonchi Neuro: Alert and responsive, No focal deficits noted Abdomen: Soft, Non-Tender Skin: No rashes noted on visualized skin Musculoskeletal: No Chest Wall Tenderness Extremities: No Clubbing Results 01/30/18 04:00 01/31/18 04:54 Lab Results 01/31/18 04:54 Sodium 139 Potassium 3.8 Chloride 103 Carbon Dioxide 29 BUN 11 Creatinine 0.85 Glucose 165 H Calcium 9.2 - Imaging and Cardiology Echo: report reviewed Cardiac cath: report reviewed - EKG Interpretation EKG results cardiology: personally reviewed Consult Discharge Plan - Plan Referrals: Chuy Chowdary MD [Primary Care Provider] -
[2018-01-31] MEDS ORDERED: *HR* Dextrose 50 % in Water (Syg) 50 ML SYRINGE IVP PRN (13:17)
[2018-01-31] MEDS ORDERED: D5% in Water 1,000 ML IVC PRN (13:17)
[2018-01-31] MEDS ORDERED: Dextrose Gel 15 GM/37.5 ML TUBE PO PRN ×2 (13:17)
[2018-01-31] MEDS: Insulin LISPRO 300 UNITS/3 ML VIAL SQ SCH ×3 (16:29→21:39)
[2018-02-01 06:19] LABS: Mean Corpuscular Volume 85.1 fL (83.0-100.0)
[2018-02-01 06:21] LABS: Hematocrit 39.4 % (37.5-50.1); Hemoglobin 13.3 g/dL (12.9-16.9); Immature Platelets 22.9 % (1.1-6.1); Mean Corpuscular HGB Conc 33.8 g/dL (31.6-35.5); Mean Corpuscular Hemoglobin 28.7 pg (28.0-33.3); Mean Platelet Volume 13.1 fL (9.4-12.4); Red Blood Count 4.63 M/mcL (4.19-5.50); Red Cell Distribution Width 15.5 % (11.5-14.5)
[2018-02-01 06:45] LABS: BUN/Creatinine Ratio 15 (6-26); Blood Urea Nitrogen 13 mg/dL (8-23); Calcium 9.4 mg/dL (8.6-10.3); Carbon Dioxide 27 mEq/L (23-29); Chloride 101 mEq/L (98-107); Glucose 178 mg/dL (70-105); Osmolality,Calculated 293 (280-300); Potassium 3.8 mEq/L (3.5-5.1); Sodium 139 mEq/L (136-145); eGFR For Non-African Americans > 60 (> 60)
--- NOTE | 2018-02-01 08:04 | Internal Med Progress Note ---
<Eunice Reeves - Last Filed: 02/01/18 15:12> Hospitalist Progress Note - Encounter Date of Encounter: 02/01/18 Time of Encounter: 10:20 - Exam Vitals: Temp Pulse Resp BP Pulse Ox 98.6 F 42 18 105/74 97 02/01/18 07:34 02/01/18 11:32 02/01/18 11:32 02/01/18 11:32 02/01/18 11:32 Exam: . - Assessment and Plan (1) Heart block AV second degree Current Visit: Yes Status: Acute (2) Thrombocytopenia Current Visit: Yes Status: Chronic (3) Diabetes mellitus Current Visit: Yes Status: Chronic (4) Diastolic congestive heart failure Current Visit: Yes Status: Chronic (5) Psoriatic arthritis Current Visit: Yes Status: Chronic (6) GERD (gastroesophageal reflux disease) Current Visit: Yes Status: Chronic (7) Hyperlipidemia Current Visit: Yes Status: Chronic (8) Tobacco dependence due to chewing tobacco Current Visit: Yes Status: Chronic - Time Spent with Patient Total time spent is greater than 50% in coordination of care (as documented) at patient's floor/unit and/or counseling patient: Internal Medicine: Result - Labs CBC & Chem 7: 02/01/18 05:52 02/01/18 05:52 Labs: Short CBC 02/01/18 Range/Units 05:52 WBC 7.4 (4.3-11.1) K/mcL Hgb 13.3 (12.9-16.9) g/dL Hct 39.4 (37.5-50.1) % Plt Count 72 L (140-400) K/mcL BMP 02/01/18 05:52 Sodium 139 Potassium 3.8 Chloride 101 Carbon Dioxide 27 BUN 13 Creatinine 0.85 Glucose 178 H Calcium 9.4 Consult Discharge Plan - Plan Referrals: Chuy Chowdary MD [Primary Care Provider] - - Attending Attestation I saw evaluated and examined this patient and my medical decision-making was reviewed with the Resident Physician, Ferny Reece . I agree with the documented findings, disposition and treatment plan as described except to any changes set forth below. We independently had [id number] contact with the patient. Patient is sleeping but easily awakes. He has been having continued episodes of intermittent bradycardia. Doing well otherwise. No chest pain or palpitations. On examination, patient is awake and alert. Heart sounds are normal. Heart rate variable. S1 and S2 normal. Breath sounds are normal. AV block: Second-degree/Mobitz type II. Evaluated by electrophysiology. Plan for pacemaker placement today. Moderate risk for complications. Thrombocytopenia: Stable. Chronic diastolic congestive heart failure: Not in acute exacerbation. Continue home medications. <Ferny Reece - Last Filed: 02/01/18 16:49> Hospitalist Progress Note - Encounter Date of Encounter: 02/01/18 - Subjective Interval History: Mr. Quintero, here for bradycardia with mobitz type 2 HB, no events overnight, is pleasant, denies lightheadedness, chest pain, or dyspnea. Afebrile, no calf tenderness. - Exam Vitals: Temp Pulse Resp BP Pulse Ox 98.6 F 75 18 111/64 97 02/01/18 07:34 02/01/18 07:34 02/01/18 07:34 02/01/18 07:34 02/01/18 07:34 Exam: General: Pleasant without distress, A&O 3 HEENT: Head atraumatic, normocephalic, EOMI, PERRL, neck nontender to palpation , absent lymphadenopathy, Moist Mucous Membranes, Heart: bradycardic in the 40s, no JVD Lungs: Clear to auscultation bilaterally, no rales Abdomen: Soft nontender, nondistended positive bowel sounds Skin: warm and dry, absent rash Extremities: no pedal edema Neuro: Cranial nerves II through XII intact, UE and LE sensation equal bilaterally, UE and LEstrength 5/5, alert oriented 3, Vascular: Pedal and radial pulses 2 out of 4 - Assessment and Plan (1) Heart block AV second degree Current Visit: Yes Status: Acute Assessment and Plan: HR baseline in 40s to 50s ECG shows Mobitz II HB P: NPO; plan for PPM implantation 02/01 afternoon per Cardiology/EP (2) Diastolic congestive heart failure Current Visit: Yes Status: Chronic Assessment and Plan: [facility] 2013 showing nonischemic cardiomyopathy with LVEF of 35-40%; continuing asa , statin, paul-i recent echo shows improved LVEF of 50% Nml LV chamber size/thickness; no sig valvular dysfunction. (3) Hyperlipidemia Current Visit: Yes Status: Chronic Assessment and Plan: Continuing Lipitor 40mg po hs (4) Tobacco dependence due to chewing tobacco Current Visit: Yes Status: Chronic Assessment and Plan: Continuing abstinence without NRT at this time, pt states no cravings (5) Diabetes mellitus Current Visit: Yes Status: Chronic Assessment and Plan: Continuing low dose SSI; has been in the 160s-180s (6) History of psoriatic arthritis Current Visit: Yes Status: Chronic Assessment and Plan: Hx of psoriatic arthritis, tx'd with sulfasalazine, continuing home regimen - Time Spent with Patient Total time spent is greater than 50% in coordination of care (as documented) at patient's floor/unit and/or counseling patient: Internal Medicine: Result - Labs CBC & Chem 7: 02/01/18 05:52 02/01/18 05:52 Labs: Short CBC 02/01/18 Range/Units 05:52 WBC 7.4 (4.3-11.1) K/mcL Hgb 13.3 (12.9-16.9) g/dL Hct 39.4 (37.5-50.1) % Plt Count 72 L (140-400) K/mcL BMP 02/01/18 05:52 Sodium 139 Potassium 3.8 Chloride 101 Carbon Dioxide 27 BUN 13 Creatinine 0.85 Glucose 178 H Calcium 9.4 <Eunice Reeves - Last Filed: 02/01/18 15:12> (3) Diabetes mellitus Qualifiers: Diabetes mellitus type: type 2 Diabetes mellitus senior living insulin use: without terminal manager use Diabetes mellitus complication status: without complication Qualified Code(s): E11.9 - Type 2 diabetes mellitus without complications (4) Diastolic congestive heart failure Qualifiers: Heart failure chronicity: chronic Qualified Code(s): I50.32 - Chronic diastolic (congestive) heart failure (6) GERD (gastroesophageal reflux disease) Qualifiers: Esophagitis presence: esophagitis presence not specified Qualified Code(s): K21.9 - Gastro-esophageal reflux disease without esophagitis (7) Hyperlipidemia Qualifiers: Hyperlipidemia type: mixed hyperlipidemia Qualified Code(s): E78.2 - Mixed hyperlipidemia <Ferny Reece - Last Filed: 02/01/18 16:49> (2) Diastolic congestive heart failure Qualifiers: Heart failure chronicity: chronic Qualified Code(s): I50.32 - Chronic diastolic (congestive) heart failure (3) Hyperlipidemia Qualifiers: Hyperlipidemia type: mixed hyperlipidemia Qualified Code(s): E78.2 - Mixed hyperlipidemia (5) Diabetes mellitus Qualifiers: Diabetes mellitus type: type 2 Diabetes mellitus terminal manager insulin use: without terminal manager use Diabetes mellitus complication status: without complication Qualified Code(s): E11.9 - Type 2 diabetes mellitus without complications
--- NOTE | 2018-02-01 10:02 | Event Note ---
<SergioShyam R - Last Filed: 02/01/18 09:49> Date of Encounter: 02/01/18 Time of Encounter: 09:49 - Cardiology Event Note 67 year old male with PMH of recovered NICMP, DM, obesity that presented with symptomatic bradycardia, heart rate in the 30s and associated fatigue over the last several weeks. Outside ECG showed Mobitz type II AV block, RBBB. Baseline first degree AV block, bundle branch block. Was on Coreg 3.125mg BID at home. HR has improved with holding beta vianney. First degree block still noted, AVG HR 58 past 24 hrs. Still occasionally decreases to 40s at bedside. Given symptomatic bradycardia, significant baseline conduction disease, and that his EF has improved on low dose BB therapy over past 4 years (NICMP), currently unable to tolerate, recommend PPM insertion. R/B/A discussed. Pt agrees to proceed. Discussed and reviewed with Dr. Romeo Ayala as well. TTE completed inpt EF 50%. Plan for PPM later today. <Romeo Ayala - Last Filed: 02/01/18 12:36> Date of Encounter: 02/01/18 - Cardiology Event Note I have personally performed a face to face evaluation on this patient. I have reviewed and agree with the care plan. History and Exam by me shows:
[2018-02-01] MEDS ORDERED: CeFAZolin Syr 2,000MG/20 ML 2,000 MG/20 ML SYRINGE IVPB ONE (10:03)
--- NOTE | 2018-02-01 14:26 | Pre-Sedation Evaluation ---
Pre-sedation evaluation - Pre-sedation checklist Date of procedure: 02/01/18 Procedure: Pacer placement Recent Vitals: Last Vital Signs Temp 98.6 F 02/01/18 07:34 Pulse 42 02/01/18 11:32 Resp 18 02/01/18 11:32 BP 105/74 02/01/18 11:32 Pulse Ox 97 02/01/18 11:32 H&P (including ROS) documented in medical record: Yes Previous reaction to sedatives/anesthetics: Yes; explain in comment Dietary Status: NPO after Midnight Airway Assessment: Patient can open mouth completely, TMJ function normal, Micrognathia (under-bite, receding chin) absent Dentition: No loose teeth or bridges, dentures removed Possible difficult airway: No ASA Classification *see protocol: CLASS II-Mild systemic disease Plan of Care: Pt appropriate candidate for procedure/moderate/conscious sedation , Risks/benefits of procedure/sedation discussed w/ patient/family Cardiac Registry (Cardio Only) - Functional Capacity - Clincal Frailty Scale
[2018-02-01] MEDS ORDERED: Water for inj. (sterile) 10 ML IV ONE (14:38)
[2018-02-01] MEDS ORDERED: *HR* FentaNYL (PF) 100 MCG/2 ML VIAL ONE (14:38)
[2018-02-01] MEDS ORDERED: *HR* Midazolam HCl 2 MG/2 ML VIAL ONE ×2 (14:38→14:58)
[2018-02-01] MEDS ORDERED: 0.9 % Sodium Chloride 500 ML ONE (14:38)
[2018-02-01] MEDS ORDERED: 0.9 % Sodium Chloride 1,000 ML ONE (14:41)
[2018-02-01] MEDS: Lisinopril 20 MG TABLET PO SCH (17:58)
[2018-02-01] MEDS: Furosemide 20 MG TABLET PO SCH (17:58)
[2018-02-01] MEDS: Insulin LISPRO 300 UNITS/3 ML VIAL SQ SCH ×3 (17:59→21:27)
[2018-02-01] MEDS: Aspirin 81 MG TAB.CHEW PO SCH (18:00)
[2018-02-01] MEDS: sulfaSALAzine 500 MG TABLET PO SCH ×2 (18:00→20:18)
[2018-02-02 04:33] LABS: Mean Corpuscular HGB Conc 33.3 g/dL (31.6-35.5); Mean Corpuscular Hemoglobin 28.7 pg (28.0-33.3); Red Cell Distribution Width 15.5 % (11.5-14.5)
[2018-02-02 04:35] LABS: Hematocrit 39.6 % (37.5-50.1); Hemoglobin 13.2 g/dL (12.9-16.9); Immature Platelets 24.4 % (1.1-6.1); Mean Corpuscular Volume 86.1 fL (83.0-100.0); Mean Platelet Volume 12.5 fL (9.4-12.4); Red Blood Count 4.6 M/mcL (4.19-5.50)
[2018-02-02 04:58] LABS: BUN/Creatinine Ratio 14 (6-26); Blood Urea Nitrogen 12 mg/dL (8-23); Calcium 9.1 mg/dL (8.6-10.3); Carbon Dioxide 29 mEq/L (23-29); Chloride 102 mEq/L (98-107); Glucose 148 mg/dL (70-105); Osmolality,Calculated 291 (280-300); Potassium 3.8 mEq/L (3.5-5.1); Sodium 139 mEq/L (136-145); eGFR For Non-African Americans > 60 (> 60)
[2018-02-02 07:28] VITALS: BP 112/72
[2018-02-02] MEDS: Aspirin 81 MG TAB.CHEW PO SCH (08:08)
[2018-02-02] MEDS: Furosemide 20 MG TABLET PO SCH (08:08)
[2018-02-02] MEDS: sulfaSALAzine 500 MG TABLET PO SCH (08:10)
[2018-02-02] MEDS: Lisinopril 20 MG TABLET PO SCH (08:11)
[2018-02-02] MEDS: Insulin LISPRO 300 UNITS/3 ML VIAL SQ SCH ×2 (08:18→12:37)
--- NOTE | 2018-02-02 09:15 | Discharge Summary ---
Orders not resulted at time of discharge: Pending orders 01/30/18 06:00 ECG 12 lead ECG [ECG] AM 0600 02/02/18 06:00 XR chest 2V [XR] Routine Date of Encounter: 02/02/18 - Discharge Diagnosis (1) Symptomatic bradycardia Status: Acute (2) Nonischemic cardiomyopathy Status: Acute (3) Gout Status: Acute (4) Diabetes mellitus Status: Chronic Qualifiers: Diabetes mellitus type: type 2 Diabetes mellitus buttermaker continuous churn insulin use: without fdc use Diabetes mellitus complication status: without complication Qualified Code(s): E11.9 - Type 2 diabetes mellitus without complications (5) Diastolic congestive heart failure Status: Chronic Qualifiers: Heart failure chronicity: chronic Qualified Code(s): I50.32 - Chronic diastolic (congestive) heart failure (6) Psoriatic arthritis Status: Chronic Hospital course: Mr. Quintero is a 67 year old male - Time Spent with Patient Total time spent providing and/or coordinating discharge services: - Discharge Medications Home Medications: Aspirin 81 mg PO DAILY 04/03/16 [History] Atorvastatin Calcium [Lipitor] 40 mg PO HS 04/03/16 [History] Furosemide [Lasix] 40 mg PO BID 04/03/16 [History] Lisinopril [Zestril] 10 mg PO DAILY 04/03/16 [History] Pantoprazole Sodium [Protonix] 40 mg PO DAILY 04/03/16 [History] Cetirizine HCl [All Day Allergy] 10 mg PO DAILY 09/15/17 [History] Metformin HCl [Fortamet] 500 mg PO BID 09/15/17 [History] Sulfasalazine [Azulfidine] 500 mg PO BID 09/15/17 [History] glipiZIDE [Glipizide] 10 mg PO BID 09/15/17 [History] Allopurinol [Zyloprim 100 MG] 100 mg PO DAILY 01/28/18 [History] Carvedilol [Carvedilol] 3.125 mg PO BID 01/29/18 [History] Allergies/Adverse Reactions: 3 Allergy/AdvReac Type Severity Reaction Status Date / Time No Known Allergies Allergy Verified 01/29/18 11:45 Date of admission: 01/29/18 13:41 Primary care physician: Chuy Chowdary Consults: 01/28/18 23:53 Consult to Cardiology [CONS] Routine Comment: Consulting Provider: Cardiology Surekha Reason for Consult: heart block 2nd degree type II Call Completed: Yes 01/31/18 10:08 Consult to Electrophysiology (EP) [CONS] Routine Consulting Provider: Electrophysiology Surekha Reason for Consult: Conduction disease, bradycardia Call Completed: Yes - Constitutional Vitals: Temp Pulse Resp BP Pulse Ox 98.5 F 62 16 112/72 93 02/02/18 07:25 02/02/18 07:25 02/02/18 07:25 02/02/18 07:25 02/02/18 07:25 - Discharge Instructions Follow Up With: Chuy Chowdary MD [Primary Care Provider] -
--- NOTE | 2018-02-02 10:07 | Electrophysiology ProgressNote ---
Date of Encounter: 02/02/18 Time of Encounter: 10:04 Assessment and Plan (1) S/P cardiac pacemaker procedure Current Visit: Yes Status: Acute S/P PPM insertion yesterday for symptomatic bradycardia, baseline conduction disease. Device site healing well. No bleeding, hematoma or ecchymosis noted. Steri strips intact. Restrictions discussed. CXR and device check okay. Plan for wound check in 7-10 days, device check 4-6 weeks and follow-up with Dr. Romeo Ayala in 3 months. Will coordinate. Cardiology/EP signing off. Reconsult PRN. (2) Symptomatic bradycardia Current Visit: Yes Status: Acute Symptomatic bradycardia, heart rate in the 30s on admission and associated fatigue over the last several weeks. No syncope or near syncope. Baseline first degree AV block, bundle branch block. S/P PPM insertion yesterday. CXR and device check okay. Now that PPM has been inserted will resume BB--Coreg 3.125mg BID since EF improved on low dose BB therapy over past 4 years (NICMP). Discussion w patient/family: The assessment and plan as outlined above was discussed with the patient and/or family members who expressed understanding and agreement. All questions were answered. Thank you for involving us in the care of your patient. Please call with any questions. I will discuss all the above with Dr. Romeo Ayala and make changes as necessary. Subjective Principal diagnosis: Bradycardia Interval history: S/P PPM insertion yesterday for symptomatic bradycardia and conduction system disease. Pt reports he can tell he feels better already. No acute complaints this AM. Objective Vital Signs, Last 4 Hours Temp Pulse Resp BP Pulse Ox 02/02/18 07:25 98.5 F 62 16 112/72 93 Vital Signs Temp Pulse Resp BP Pulse Ox 02/02/18 07:25 98.5 F 62 16 112/72 93 02/02/18 04:00 97.9 F 67 18 139/82 94 02/02/18 00:00 98.3 F 71 18 141/79 97 02/01/18 20:00 98.6 F 79 138/84 100 02/01/18 17:30 68 20 133/83 02/01/18 17:00 60 20 155/84 02/01/18 16:28 59 18 184/87 97 02/01/18 16:10 61 18 184/87 96 02/01/18 11:32 42 18 105/74 97 Intake and Output 02/01/18 02/02/18 02/02/18 23:59 07:59 15:59 Intake Total 200 / 200 300 / 300 100 / 100 Output Total 1100 / 1100 Balance 200 / 200 -800 / -800 100 / 100 Intake: IV Fluids 100 / 100 Ancef 2,000 MG In 0.9 % Sodium 100 / 100 Chloride 100 ML @ 200 mls/hr IVPB Q8H [facility] Rx#:[id number] Oral 100 / 100 300 / 300 100 / 100 Output: Urine 1100 / 1100 Other: Meal Breakfast Percent of Meal Consumed 45% Weight 103 kg Blood Glucose* 234 166 Patient Weight 02/02/18 23:59 Weight 103 kg General: Conversant, No Apparent Distress HEENT: Atraumatic, Normocephaly, Mucus Membranes Moist Neck: No JVD, Normal carotid pulses Cardiac: Reg Rate and Rhythm, Normal S1 and S2, No Murmur Lungs: Normal Breath Sounds, No Wheeze, Rales, Rhonchi Neuro: Alert and responsive, No focal deficits noted Abdomen: Soft, Non-Tender Skin: Other (left chest device site healing well. No bleeding, hematoma or ecchymosis noted.) Musculoskeletal: No Chest Wall Tenderness Extremities: No Clubbing, No Cyanosis, No Edema, Normal Pulses Results 02/02/18 03:36 02/02/18 03:36 Lab Results 02/02/18 02/02/18 03:36 03:36 WBC 7.7 Hgb 13.2 Hct 39.6 Plt Count 68 L Sodium 139 Potassium 3.8 Chloride 102 Carbon Dioxide 29 BUN 12 Creatinine 0.85 Glucose 148 H Calcium 9.1 Short CBC 02/02/18 Range/Units 03:36 WBC 7.7 (4.3-11.1) K/mcL Hgb 13.2 (12.9-16.9) g/dL Hct 39.6 (37.5-50.1) % Plt Count 68 L (140-400) K/mcL BMP 02/02/18 Range/Units 03:36 Sodium 139 (136-145) mEq/L Potassium 3.8 (3.5-5.1) mEq/L Chloride 102 (98-107) mEq/L Carbon Dioxide 29 (23-29) mEq/L BUN 12 (8-23) mg/dL Creatinine 0.85 (0.70-1.30) mg/dL Glucose 148 H (70-105) mg/dL Calcium 9.1 (8.6-10.3) mg/dL Impressions Chest X-Ray 02/01/18 15:39 IMPRESSION: Successful placement of left pacemaker with no evidence of pneumothorax or other complications. D/ / 02/01/2018 16:28:18 Dinora Hamilton MD / [facility] Interpreting Provider: Dinora Hamilton MD Active Medications Acetaminophen (Tylenol) 1,000 mg PO Q6HR PRN PRN Reason: Pain Stop: 08/03/18 17:52 Last Admin: 02/01/18 18:33 Dose: 1,000 mg Allopurinol (Zyloprim) 100 mg PO DAILY LILLY Stop: 07/31/18 09:01 Last Admin: 02/02/18 08:09 Dose: 100 mg Aspirin (Aspirin) 81 mg PO DAILY LILLY Stop: 07/31/18 09:01 Last Admin: 02/02/18 08:08 Dose: 81 mg Atorvastatin Calcium (Lipitor) 40 mg PO HS LILLY Stop: 07/31/18 21:01 Last Admin: 02/01/18 20:17 Dose: 40 mg Carvedilol (Coreg) 3.125 mg PO BIDWM LILLY PRN Reason: Protocol Stop: 08/04/18 10:05 Dextrose/Water (Dextrose 50% (Syg)) 25 ml IVP AD PRN PRN Reason: Hypoglycemia Stop: 08/02/18 13:18 Furosemide (Lasix) 40 mg PO BIDDIURETIC LILLY Stop: 08/01/18 21:01 Last Admin: 02/02/18 08:08 Dose: 40 mg Glucagon (Glucagen) 1 mg IM ONCE PRN PRN Reason: Hypoglycemia Stop: 08/02/18 13:18 Glucose (Gluctose) 15 gm PO ONCE PRN PRN Reason: Hypoglycemia Stop: 08/02/18 13:18 Glucose (Gluctose) 30 gm PO ONCE PRN PRN Reason: Hypoglycemia Stop: 08/02/18 13:18 Dextrose (Dextrose 5%) 1,000 mls @ 100 mls/hr IVC .Q10H PRN PRN Reason: HYPOGLYCEMIA Stop: 08/02/18 13:18 Insulin Human Lispro (Humalog) 0 units SQ TIDAC LILYL PRN Reason: Protocol Stop: 08/02/18 13:31 Last Admin: 02/02/18 08:18 Dose: 2 units Insulin Human Lispro (Humalog) 0 units SQ HS LILLY PRN Reason: Protocol Stop: 08/02/18 21:01 Last Admin: 02/01/18 21:27 Dose: 3 units Lisinopril (Zestril) 10 mg PO DAILY LILLY PRN Reason: Protocol Stop: 07/31/18 09:01 Last Admin: 02/02/18 08:11 Dose: 10 mg Naloxone HCl (Narcan) 0.4 mg IVP Q2MIN PRN PRN Reason: SEE COMMENTS Stop: 07/30/18 23:50 Omeprazole (Prilosec) 20 mg PO DAILY [facility] Stop: 07/31/18 09:01 Last Admin: 02/02/18 08:09 Dose: 20 mg Sulfasalazine (Sulfasalazine) 500 mg PO BID [facility] Stop: 07/31/18 09:01 Last Admin: 02/02/18 08:10 Dose: 500 mg - Imaging and Cardiology Chest Xray: report reviewed Echo: report reviewed Consult Discharge Plan - Plan Additional Instructions: ACTIVITY: Moderate activity for the next 7 days. No lifting more than 5 pounds ( gallon of milk) for 4-6 weeks. Avoid lifting your arm on the same side as the device for 4 weeks. BATHING /SHOWERING: Do not remove the large bandage over the site for 2 days. Do not allow the device to get wet for 7-10 days. You may bathe/shower, but do not use soap and water on the site. When bathing, keep the site dry by covering with Saran wrap or a towel. WOUND CARE: The white steri-strips will start to peel away and come off after 14 days, or your doctor will remove them after [address] into or on top of the incision. Do not use cotton swabs. Do not use any antibiotic ointment or Vitamin E on the site. REMINDERS: You may use electrical devices, such as, microwaves, hair dryers, electric razors, electric blankets, etc. as long as they are in good condition and kept 6 -8 inches away from the device. It is recommended to use cell phones on the opposite side of your device. Notify security personnel at the airport that you have a device before you go through airport security screening. When at places with security monitors, such as a grocery store, do not linger near these monitors. It is fine to walk past them in a normal manner. Refer to your owners manual for more specific directions. CARRY YOUR PACEMAKER/ICD CARD WITH YOU AT ALL TIMES Return to work as instructed per physician Resume driving as instructed per physician Keep all scheduled follow up appointments Resume medications as instructed Contact [facility] ( ) if: You develop excessive bleeding from insertion or wound site not controlled by applying pressure You develop a fever greater than 101 degrees Fahrenheit Your incision becomes reddened at or around the site Your incision develops yellowish or greenish drainage or development of white pimple-like bumps You experience excessive pain You develop swelling in your ankles You experience muscle switching You develop excessive hiccupping If you experience chest pain, shortness of breath, dizziness, or extreme tiredness, stop the activity and rest. Please notify [facility] office if you experience any of these symptoms and they are not relieved by rest please call 911! Referrals: Roemo Flynn [Non-Partnered Physician] - 02/09/18 9:00 am
--- NOTE | 2018-02-02 14:02 | Discharge Summary ---
<Omar Balderas - Last Filed: 02/02/18 19:44> - NOTES TO OUTPATIENT PROVIDER Notes to Outpatient Provider: - Follow up with cardiology for the wound check in 7-10 days. - Device check in 4-6 weeks. -Follow up with Dr. Romeo Ayala in 3 months. -Resume beta blockers, Coreg 3.125 mg twice a day. Orders not resulted at time of discharge: Pending orders 01/30/18 06:00 ECG 12 lead ECG [ECG] AM 0600 Date of Encounter: 02/02/18 - Discharge Diagnosis (1) Symptomatic bradycardia Priority: Primary Status: Acute (2) Nonischemic cardiomyopathy Priority: Secondary Status: Acute (3) Gout Priority: Secondary Status: Acute (4) Diabetes mellitus Priority: Secondary Status: Chronic Qualifiers: Diabetes mellitus type: type 2 Diabetes mellitus intermediate project manager insulin use: without intermediate project manager use Diabetes mellitus complication status: without complication Qualified Code(s): E11.9 - Type 2 diabetes mellitus without complications (5) Diastolic congestive heart failure Priority: Secondary Status: Chronic Qualifiers: Heart failure chronicity: chronic Qualified Code(s): I50.32 - Chronic diastolic (congestive) heart failure (6) Psoriatic arthritis Priority: Secondary Status: Chronic Hospital course: Mr. Quintero, a 67-year-old male the past medical history of diabetes (last A1C : 6.8) , gout, obesity,psoriatic arthritis, and nonischemic cardio myopathy ([facility] 2013, currently on aspirin, Coreg 3.125 twice a day, atorvastatin , lisinopril, Lasix). He was admitted to the ED at the [facility] because he felt that his heart rate was in 30s, and was diagnosed with some symptomatic bradycardia. Patient was also found to have Mobitz type II heart at an outside facility. Owing to his symptom of symptomatic bradycardia and improvement of his EF due to low-dose beta vianney therapy for the past 4 years it was recommended that patient gets a PPM inserted. PPM was finally inserted yesterday and patient responded very well to the whole procedure. Currently patient is not bradycardic anymore . Postoperative chest x-ray and device check looks unremarkable, and patient is stable for discharge. Patient has been recommended to resume beta blockers twice a day. - Time Spent with Patient Total time spent providing and/or coordinating discharge services: - Discharge Medications Home Medications: Aspirin 81 mg PO DAILY 04/03/16 [History] Atorvastatin Calcium [Lipitor] 40 mg PO HS 04/03/16 [History] Furosemide [Lasix] 40 mg PO BID 04/03/16 [History] Lisinopril [Zestril] 10 mg PO DAILY 04/03/16 [History] Pantoprazole Sodium [Protonix] 40 mg PO DAILY 04/03/16 [History] Cetirizine HCl [All Day Allergy] 10 mg PO DAILY 09/15/17 [History] Metformin HCl [Fortamet] 500 mg PO BID 09/15/17 [History] Sulfasalazine [Azulfidine] 500 mg PO BID 09/15/17 [History] glipiZIDE [Glipizide] 10 mg PO BID 09/15/17 [History] Allopurinol [Zyloprim 100 MG] 100 mg PO DAILY 01/28/18 [History] Carvedilol 3.125 mg PO BID 01/29/18 [History] Allergies/Adverse Reactions: 3 Allergy/AdvReac Type Severity Reaction Status Date / Time No Known Allergies Allergy Verified 01/29/18 11:45 Date of admission: 01/29/18 13:41 Primary care physician: Chuy Chowdary Consults: 01/28/18 23:53 Consult to Cardiology [CONS] Routine Comment: Consulting Provider: [facility] [place] Reason for Consult: heart block 2nd degree type II Call Completed: Yes 01/31/18 10:08 Consult to Electrophysiology (EP) [CONS] Routine Consulting Provider: [facility] [place] Reason for Consult: Conduction disease, bradycardia Call Completed: Yes - Constitutional Vitals: Temp Pulse Resp BP Pulse Ox 98.5 F 62 16 112/72 93 02/02/18 07:25 02/02/18 07:25 02/02/18 07:25 02/02/18 07:25 02/02/18 07:25 Exam: General: Pleasant without distress, A&O 3 HEENT: Head atraumatic, normocephalic, EOMI, PERRL, neck nontender to palpation , absent lymphadenopathy, Moist Mucous Membranes, Heart: RRR, no gallops, murmurs, or rubs. Lungs: Clear to auscultation bilaterally, no rales Abdomen: Soft nontender, nondistended positive bowel sounds Skin: warm and dry, absent rash Extremities: no pedal edema Neuro: Cranial nerves II through XII intact, UE and LE sensation equal bilaterally, UE and LEstrength 5/5, alert oriented 3, Vascular: Pedal and radial pulses 2 out of 4 - Patient Status Disposition: Home, Self-Care Condition: Good - Discharge Instructions Instructions: Pacemaker (DC), Bradycardia (DC) Follow Up With: Romeo Flynn [Non-Partnered Physician] - 02/09/18 9:00 am Romeo Ayala MD [Partnered Physician] - (Cardiology office will contact you with appointment date and times, they will arrange. Expect the following appointments: Wound Check Device Check Cardiology ) Additional Instructions: ACTIVITY: Moderate activity for the next 7 days. No lifting more than 5 pounds ( gallon of milk) for 4-6 weeks. Avoid lifting your arm on the same side as the device for 4 weeks. BATHING /SHOWERING: Do not remove the large bandage over the site for 2 days. Do not allow the device to get wet for 7-10 days. You may bathe/shower, but do not use soap and water on the site. When bathing, keep the site dry by covering with Saran wrap or a towel. WOUND CARE: The white steri-strips will start to peel away and come off after 14 days, or your doctor will remove them after [address] into or on top of the incision. Do not use cotton swabs. Do not use any antibiotic ointment or Vitamin E on the site. REMINDERS: You may use electrical devices, such as, microwaves, hair dryers, electric razors, electric blankets, etc. as long as they are in good condition and kept 6 -8 inches away from the device. It is recommended to use cell phones on the opposite side of your device. Notify security personnel at the airport that you have a device before you go through airport security screening. When at places with security monitors, such as a grocery store, do not linger near these monitors. It is fine to walk past them in a normal manner. Refer to your owners manual for more specific directions. CARRY YOUR PACEMAKER/ICD CARD WITH YOU AT ALL TIMES Return to work as instructed per physician/ as long as your work will follow the activity restrictions post pacemaker placement, you can return to work Resume driving as instructed per physician/ may resume driving in 4 weeks Keep all scheduled follow up appointments Resume medications as instructed Contact [facility] ( ) if: You develop excessive bleeding from insertion or wound site not controlled by applying pressure You develop a fever greater than 101 degrees Fahrenheit Your incision becomes reddened at or around the site Your incision develops yellowish or greenish drainage or development of white pimple-like bumps You experience excessive pain You develop swelling in your ankles You experience muscle switching You develop excessive hiccupping If you experience chest pain, shortness of breath, dizziness, or extreme tiredness, stop the activity and rest. Please notify [facility] office if you experience any of these symptoms and they are not relieved by rest please call 911! <Eunice Reeves - Last Filed: 02/03/18 08:06> Orders not resulted at time of discharge: Pending orders 01/30/18 06:00 ECG 12 lead ECG [ECG] AM 0600 Date of Encounter: 02/02/18 Time of Encounter: 14:24 - Discharge Diagnosis (1) Heart block AV second degree Priority: Primary Status: Acute (2) Thrombocytopenia Priority: Secondary Status: Chronic (3) Diabetes mellitus Status: Chronic Qualifiers: Diabetes mellitus type: type 2 Diabetes mellitus jail insulin use: without intermediate project manager use Diabetes mellitus complication status: without complication Qualified Code(s): E11.9 - Type 2 diabetes mellitus without complications (4) Diastolic congestive heart failure Status: Chronic Qualifiers: Heart failure chronicity: chronic Qualified Code(s): I50.32 - Chronic diastolic (congestive) heart failure (5) Psoriatic arthritis Status: Chronic (6) GERD (gastroesophageal reflux disease) Priority: Secondary Status: Chronic Qualifiers: Esophagitis presence: esophagitis presence not specified Qualified Code(s) : K21.9 - Gastro-esophageal reflux disease without esophagitis (7) Hyperlipidemia Priority: Secondary Status: Chronic Qualifiers: Hyperlipidemia type: mixed hyperlipidemia Qualified Code(s): E78.2 - Mixed hyperlipidemia (8) Tobacco dependence due to chewing tobacco Priority: Secondary Status: Chronic Hospital course: Mr. Quintero is a 67 year old male - Time Spent with Patient Total time spent providing and/or coordinating discharge services: Less than 30 minutes (25 min) Date of admission: 01/29/18 13:41 Primary care physician: Chuy Chowdary Consults: 01/28/18 23:53 Consult to Cardiology [CONS] Routine Comment: Consulting Provider: [facility] Reason for Consult: heart block 2nd degree type II Call Completed: Yes 01/31/18 10:08 Consult to Electrophysiology (EP) [CONS] Routine Consulting Provider: [facility] Reason for Consult: Conduction disease, bradycardia Call Completed: Yes Discharging clinician: Eunice Reeves Anticipated date of discharge: 02/02/18 - Constitutional Vitals: Temp Pulse Resp BP Pulse Ox 98.5 F 62 16 112/72 93 02/02/18 07:25 02/02/18 07:25 02/02/18 07:25 02/02/18 07:25 02/02/18 07:25 Exam: General: Patient is alert, no acute distress, oriented x 3 Respiratory: Good respiratory effort. Normal breath sounds. No wheezing or crackles. Cardiovascular: Regular rate and rhythm. s1 and s2 normal No clicks, rubs, gallops, or murmurs. No pedal edema Abdomen: Abdomen is soft, nontender. Bowel sounds are present Musculoskeletal: Spontaneously moving all extremities Skin: warm, dry, intact. Neuro: Alert oriented x 3 normal cranial nerves, no focal deficits - Patient Status Functional capacity at discharge: independent ambulation Overall status at discharge: patient is progressing back to baseline - Diet and Activity Activity: increase activity as tolerated Diet: diabetic diet, low salt diet - Attending Attestation I saw evaluated and examined this patient and my medical decision-making was reviewed with the Resident Physician, Omar Balderas. I agree with the documented findings, disposition and treatment plan as described except to any changes set forth below. We independently had [id number] contact with the patient. Patient was hospitalized for symptomatic bradycardia. Evaluated by cardiology. Beta viannye held but patient remained bradycardic with Mobitz type II AV block. As such keep the was consulted and patient underwent permanent pacemaker placement yesterday. Since then he has been doing well. Cleared for discharge from cardiology standpoint. He will be placed back on beta vianney now.
== END 2018-02-02 15:00 | disposition home or self-care (01) | DRG 243 ==
LOC: ICNU → SUATTDRO 22:55 → 2NENU 01-30 21:01
PROVIDERS: ADMIT Internal Medicine; ATTEND Internal Medicine

== ENCOUNTER 2020-03-15 21:53 | Inpatient (IN) ==
[2020-03-16] MEDS ORDERED: Naloxone 0.4 MG/ML INJ IVP PRN (00:27)
[2020-03-16] MEDS ORDERED: *HR* Heparin 5,000 UNIT/ML VIAL IVP PRN ×2 (03:01)
[2020-03-16] MEDS ORDERED: Perflutren Lipid Microsphere 1.3 ML in 0.9 % Sodium Chloride 8.7 ML IVP PRN (03:50)
[2020-03-16 04:27] LABS: INR 1.5; Prothrombin Time 17.2 Seconds (9.4-12.1)
[2020-03-16 04:29] LABS: Alanine Aminotransferase 26 Units/L (7-52); Albumin 3.5 g/dL (3.5-5.7); Albumin/Globulin Ratio 1.3 (1.1-2.2); Alkaline Phosphatase 96 Units/L (34-104); Aspartate Amino Transferase 30 Units/L (13-39); BUN/Creatinine Ratio 15 (6-26); Blood Urea Nitrogen 16 mg/dL (8-23); Calcium 8.5 mg/dL (8.6-10.3); Carbon Dioxide 25 mEq/L (23-29); Chloride 107 mEq/L (98-107); Globulin 2.6 g/dL (2.4-3.5); Glucose 125 mg/dL (70-105); Osmolality,Calculated 293 (280-300); Potassium 3.7 mEq/L (3.5-5.1); Sodium 140 mEq/L (136-145); Total Protein 6.1 g/dL (6.4-8.9); eGFR For African Americans > 60 (> 60); eGFR For Non-African Americans > 60 (> 60)
[2020-03-16] MEDS: Heparin 25,000UNIT/250ML 1/2NS 25,000 UNIT/250 ML IV.SOLN IVC SCH ×2 (04:58→05:35)
[2020-03-16] MEDS ORDERED: D5% in Water 1,000 ML IVC PRN (06:18)
[2020-03-16] MEDS ORDERED: Dextrose Gel 15 GM/37.5 ML TUBE PO PRN ×2 (06:18)
[2020-03-16] MEDS ORDERED: *HR* Dextrose 50 % in Water (Vial) 50 ML VIAL IVP PRN (06:18)
[2020-03-16 06:22] LABS: Hemoglobin 12.3 g/dL (12.9-16.9); Red Blood Count 4.27 M/mcL (4.19-5.50); White Blood Count 7.7 K/mcL (4.3-11.1)
[2020-03-16 06:23] LABS: Hematocrit 37.5 % (37.5-50.1); Mean Corpuscular HGB Conc 32.8 g/dL (31.6-35.5); Mean Corpuscular Hemoglobin 28.8 pg (28.0-33.3); Mean Corpuscular Volume 87.8 fL (83.0-100.0); Mean Platelet Volume 13.8 fL (9.4-12.4); Platelet Count 67 K/mcL (140-400); Red Cell Distribution Width 15.5 % (11.5-14.5); Segmented Neutrophils % 62.3 %
[2020-03-16 06:24] LABS: Basophils # 0.1 K/mcL (0.0-0.2); Basophils % 0.7 %; Eosinophils # 0.2 K/mcL (0.0-0.6); Eosinophils % 2.2 %; Immature Granulocytes % 0.5 % (0-4); Lymphocytes # 1.9 K/mcL (0.6-4.6); Lymphocytes % 24.3 %; Monocytes # 0.8 K/mcL (0.0-1.3); Neutrophils # 4.8 K/mcL (1.6-8.9)
[2020-03-16] MEDS: cefTRIAXone 1,000 MG in Water for inj. (sterile) 10 ML IVP SCH (09:07)
[2020-03-16] MEDS: Ipratropium/Albuterol Neb 3 ML IH SCH ×3 (10:20→21:20)
[2020-03-16] MEDS: Furosemide 20 MG/2 ML VIAL IVP SCH ×2 (10:27→20:00)
[2020-03-16] MEDS: Insulin LISPRO 300 UNITS/3 ML VIAL SQ SCH ×4 (14:04→20:20)
[2020-03-16] MEDS: Azithromycin 500 MG in D5% in Water 250 ML IVPB SCH (16:34)
[2020-03-16] MEDS: Aspirin 81 MG TAB.CHEW PO SCH (17:37)
[2020-03-16] MEDS ORDERED: carvediloL 6.25 MG TABLET PO SCH (21:00)
[2020-03-17 02:34] LABS: Hematocrit 37.5 % (37.5-50.1); Hemoglobin 12.2 g/dL (12.9-16.9); Immature Platelets 18.6 % (1.1-6.1); Mean Corpuscular HGB Conc 32.5 g/dL (31.6-35.5); Mean Corpuscular Hemoglobin 28.2 pg (28.0-33.3); Mean Corpuscular Volume 86.8 fL (83.0-100.0); Mean Platelet Volume 13.3 fL (9.4-12.4); Red Blood Count 4.32 M/mcL (4.19-5.50); Red Cell Distribution Width 15.3 % (11.5-14.5)
[2020-03-17 02:51] LABS: BUN/Creatinine Ratio 14 (6-26); Blood Urea Nitrogen 14 mg/dL (8-23); Calcium 9.1 mg/dL (8.6-10.3); Carbon Dioxide 28 mEq/L (23-29); Chloride 105 mEq/L (98-107); Glucose 163 mg/dL (70-105); Osmolality,Calculated 294 (280-300); Potassium 3.9 mEq/L (3.5-5.1); Sodium 140 mEq/L (136-145); eGFR For African Americans > 60 (> 60); eGFR For Non-African Americans > 60 (> 60)
[2020-03-17] MEDS: Ipratropium/Albuterol Neb 3 ML IH SCH ×4 (03:22→22:27)
[2020-03-17 07:43] LABS: Magnesium 1.8 mg/dL (1.6-2.6)
[2020-03-17] MEDS: Furosemide 20 MG/2 ML VIAL IVP SCH (08:47)
[2020-03-17] MEDS: Insulin LISPRO 300 UNITS/3 ML VIAL SQ SCH ×4 (08:47→20:57)
[2020-03-17] MEDS: Aspirin 81 MG TAB.CHEW PO SCH (08:48)
[2020-03-17] MEDS: carvediloL 6.25 MG TABLET PO SCH ×2 (08:48→16:31)
[2020-03-17] MEDS: cefTRIAXone 1,000 MG in Water for inj. (sterile) 10 ML IVP SCH (08:48)
[2020-03-17] MEDS ORDERED: Magnesium Sulfate 1 GM/102 ML PIGGYBACK IVPB ONE (10:01)
[2020-03-17] MEDS: Azithromycin 500 MG in D5% in Water 250 ML IVPB SCH (16:31)
[2020-03-18] MEDS: Ipratropium/Albuterol Neb 3 ML IH SCH ×3 (03:46→15:23)
[2020-03-18 06:35] LABS: Hemoglobin 12.3 g/dL (12.9-16.9); Immature Granulocytes % 0.5 % (0-4); Mean Corpuscular HGB Conc 31.5 g/dL (31.6-35.5); Red Blood Count 4.39 M/mcL (4.19-5.50); Red Cell Distribution Width 14.9 % (11.5-14.5)
[2020-03-18 06:37] LABS: Basophils # 0.1 K/mcL (0.0-0.2); Basophils % 0.8 %; Eosinophils # 0.2 K/mcL (0.0-0.6); Eosinophils % 3.6 %; Hematocrit 39.1 % (37.5-50.1); Lymphocytes # 1.4 K/mcL (0.6-4.6); Lymphocytes % 23.3 %; Mean Corpuscular Volume 89.1 fL (83.0-100.0); Mean Platelet Volume 13.4 fL (9.4-12.4); Monocytes # 0.7 K/mcL (0.0-1.3); Monocytes % 11.9 %; Neutrophils # 3.5 K/mcL (1.6-8.9); Segmented Neutrophils % 59.9 %; White Blood Count 5.9 K/mcL (4.3-11.1)
[2020-03-18 06:41] LABS: Platelet Count 64 K/mcL (140-400)
[2020-03-18 06:47] LABS: BUN/Creatinine Ratio 13 (6-26); Blood Urea Nitrogen 12 mg/dL (8-23); Calcium 9.1 mg/dL (8.6-10.3); Carbon Dioxide 29 mEq/L (23-29); Chloride 104 mEq/L (98-107); Glucose 209 mg/dL (70-105); Osmolality,Calculated 290 (280-300); Sodium 137 mEq/L (136-145); eGFR For African Americans > 60 (> 60); eGFR For Non-African Americans > 60 (> 60)
[2020-03-18] MEDS: Aspirin 81 MG TAB.CHEW PO SCH (08:02)
[2020-03-18] MEDS: carvediloL 6.25 MG TABLET PO SCH (08:02)
[2020-03-18] MEDS: cefTRIAXone 1,000 MG in Water for inj. (sterile) 10 ML IVP SCH (08:02)
[2020-03-18] MEDS: Insulin LISPRO 300 UNITS/3 ML VIAL SQ SCH ×2 (08:03→12:07)
[2020-03-18] MEDS ORDERED: 0.9 % Sodium Chloride 1,000 ML ONE ×2 (13:22→13:50)
[2020-03-18] MEDS ORDERED: ISOVUE-370 200 ML INFUS..BTL ONE (13:22)
[2020-03-18] MEDS ORDERED: Heparin 1,000 UNITS/500 mL 500 ML ONE (13:22)
[2020-03-18] MEDS ORDERED: Nitroglycerin 1,000 MCG/10 ML VIAL IV ONE (13:22)
[2020-03-18] MEDS ORDERED: *HR* Heparin 10,000 UNIT/10 ML VIAL ONE (13:22)
[2020-03-18] MEDS ORDERED: *HR* Midazolam HCl 2 MG/2 ML VIAL ONE (13:57)
[2020-03-18] MEDS ORDERED: *HR* FentaNYL (PF) 100 MCG/2 ML VIAL ONE (13:57)
[2020-03-18 17:59] VITALS: BP 131/72
== END 2020-03-18 18:34 | disposition home or self-care (01) | DRG 871 ==
LOC: 3BNU
PROVIDERS: ADMIT Family Medicine; ATTEND Family Medicine

== ENCOUNTER 2021-07-02 22:50 | Inpatient (IN) ==
[2021-07-03] MEDS ORDERED: Ondansetron ODT 4 MG TAB.RAPDIS SL PRN (02:11)
[2021-07-03] MEDS ORDERED: Acetaminophen 325 MG TABLET PO PRN (02:11)
[2021-07-03] MEDS ORDERED: D5% in Water 1,000 ML IVC PRN (02:11)
[2021-07-03] MEDS ORDERED: Dextrose Gel 15 GM/37.5 ML TUBE PO PRN ×2 (02:11)
[2021-07-03] MEDS ORDERED: *HR* Dextrose 50 % in Water (Syg) 50 ML SYRINGE IVP PRN (02:11)
[2021-07-03] MEDS ORDERED: Naloxone 0.4 MG/ML INJ IVP PRN (02:11)
[2021-07-03] MEDS ORDERED: Melatonin 3 MG TABLET PO PRN (02:13)
[2021-07-03] MEDS ORDERED: Sennosides/Docusate Sodium TABLET PO PRN (02:13)
[2021-07-03 05:31] LABS: Eosinophils % 0.9 %; Red Cell Distribution Width 15.7 % (11.5-14.5)
[2021-07-03 05:33] LABS: Basophils # 0.1 K/mcL (0.0-0.2); Basophils % 0.7 %; Eosinophils # 0.1 K/mcL (0.0-0.6); Hematocrit 34.7 % (37.5-50.1); Hemoglobin 11.5 g/dL (12.9-16.9); Immature Granulocytes % 0.7 % (0-4); Immature Platelets 15.3 % (1.1-6.1); Lymphocytes # 1.1 K/mcL (0.6-4.6); Lymphocytes % 12.3 %; Mean Corpuscular HGB Conc 33.1 g/dL (31.6-35.5); Mean Corpuscular Hemoglobin 29.3 pg (28.0-33.3); Mean Corpuscular Volume 88.3 fL (83.0-100.0); Mean Platelet Volume 12.4 fL (9.4-12.4); Monocytes # 1.1 K/mcL (0.0-1.3); Monocytes % 12.4 %; Neutrophils # 6.6 K/mcL (1.6-8.9); Red Blood Count 3.93 M/mcL (4.19-5.50)
[2021-07-03 05:42] LABS: Platelet Count 59 K/mcL (140-400)
[2021-07-03 05:51] LABS: Thyroid Stimulating Hormone 3.77 mcIU/mL (0.340-5.600)
[2021-07-03] MEDS: *HR* Heparin 5,000 UNIT/ML VIAL SQ SCH ×2 (06:10→17:11)
[2021-07-03 07:20] LABS: BUN/Creatinine Ratio 22 (6-26); Blood Urea Nitrogen 23 mg/dL (8-23); Calcium 8.5 mg/dL (8.6-10.3); Carbon Dioxide 26 mEq/L (23-29); Chloride 102 mEq/L (98-107); Cholesterol 65 mg/dL (< 200); Glucose 145 mg/dL (70-105); HDL Cholesterol 22 mg/dL (40-59); LDL Cholesterol,Calculated 27 mg/dL (< 100); Magnesium 1.9 mg/dL (1.6-2.6); Osmolality,Calculated 286 (280-300); Phosphorous 3.2 mg/dL (2.7-4.5); Potassium 3.6 mEq/L (3.5-5.1); Sodium 135 mEq/L (136-145); Triglycerides 79 mg/dL (< 150); Troponin I 0.06 ng/mL (< 0.04); eGFR For African Americans > 60 (> 60); eGFR For Non-African Americans > 60 (> 60)
[2021-07-03] MEDS: Insulin LISPRO 300 UNITS/3 ML VIAL SUBQ SCH ×3 (08:56→17:54)
[2021-07-03 10:25] LABS: Estimated Average Glucose 166 mg/dl; Hemoglobin A1C 7.4 %
[2021-07-03 16:25] LABS: Bilirubin,Urine Negative (Negative); Blood,Urine Negative (Negative); Clarity,Urine Clear (Clear); Color,Urine Yellow (Yellow); Glucose,Urine (UA) 300 mg/dL (Normal); Ketones,Urine Negative (Negative); Leukocyte Esterase,Urine Negative (Negative); Mucus,Urine Few per lpf (None-Few); Nitrite,Urine Negative (Negative); PH,Urine 5.5 pH Units (5.0-8.0); Protein,Urine Trace mg/dL (Neg-Trace); RBC,Urine 0-3 per hpf (0-3); Specific Gravity,Urine 1.019 (1.010-1.025); Squamous Epithelial Cell,Urine Few per hpf (None-Few); WBC,Urine 0-3 per hpf (0-3)
[2021-07-03 23:57] LABS: Acinetobacter baumannii by PCR Not Detected (Not Detect); Candida albicans by PCR Not Detected (Not Detect); Candida glabrata by PCR Not Detected (Not Detect); Candida krusei by PCR Not Detected (Not Detect); Candida parapsilosis by PCR Not Detected (Not Detect); Candida tropicalis by PCR Not Detected (Not Detect); Enterobacter cloacae Cmplx PCR Not Detected (Not Detect); Enterobacteriaceae by PCR Not Detected (Not Detect); Enterococcus by PCR DETECTED (Not Detect); Escherichia coli by PCR Not Detected (Not Detect); Klebsiella oxytoca by PCR Not Detected (Not Detect); Klebsiella pneumoniae by PCR Not Detected (Not Detect); Proteus by PCR Not Detected (Not Detect); Pseudomonas aeruginosa by PCR Not Detected (Not Detect); Serratia marcescens by PCR Not Detected (Not Detect); Staphylococcus aureus by PCR Not Detected (Not Detect); Staphylococcus by PCR Not Detected (Not Detect); Streptococcus agalactiae(B)PCR Not Detected (Not Detect); Streptococcus by PCR Not Detected (Not Detect); Streptococcus pneumoniae PCR Not Detected (Not Detect); Streptococcus pyogenes (A) PCR Not Detected (Not Detect); blaKPC Carbapenem-Resist Gene Not Detected (Not Detect); mecA Methicillin-Resist Gene Not Detected (Not Detect); vanA/B Vancomycin-Resist Genes Not Detected (Not Detect)
[2021-07-04] MEDS ORDERED: Vancomycin 1,500 MG/265 ML IV.SOLN IVPB SCH (02:00)
[2021-07-04] MEDS ORDERED: Ampicillin 2,000 MG in 0.9 % Sodium Chloride Mini Bag 100 ML IVPB SCH (04:00)
[2021-07-04] MEDS ORDERED: cefTRIAXone 2,000 MG in 0.9 % Sodium Chloride Mini Bag 100 ML IVPB SCH (06:00)
[2021-07-04] MEDS: *HR* Heparin 5,000 UNIT/ML VIAL SQ SCH (06:16)
[2021-07-04 06:32] LABS: Hemoglobin 11.5 g/dL (12.9-16.9); Red Cell Distribution Width 15.8 % (11.5-14.5); White Blood Count 7.5 K/mcL (4.3-11.1)
[2021-07-04 06:33] LABS: Hematocrit 35.7 % (37.5-50.1); Immature Platelets 14.8 % (1.1-6.1); Mean Corpuscular HGB Conc 32.2 g/dL (31.6-35.5); Mean Corpuscular Hemoglobin 28.3 pg (28.0-33.3); Mean Corpuscular Volume 87.9 fL (83.0-100.0); Red Blood Count 4.06 M/mcL (4.19-5.50)
[2021-07-04 06:52] LABS: BUN/Creatinine Ratio 20 (6-26); Blood Urea Nitrogen 15 mg/dL (8-23); Calcium 8.6 mg/dL (8.6-10.3); Carbon Dioxide 28 mEq/L (23-29); Chloride 103 mEq/L (98-107); Glucose 149 mg/dL (70-105); Osmolality,Calculated 284 (280-300); Potassium 3.7 mEq/L (3.5-5.1); Sodium 135 mEq/L (136-145); eGFR For African Americans > 60 (> 60); eGFR For Non-African Americans > 60 (> 60)
[2021-07-04] MEDS: Insulin LISPRO 300 UNITS/3 ML VIAL SUBQ SCH ×3 (07:37→17:53)
[2021-07-04] MEDS: Nicotine 21 MG PATCH.TD24 TD SCH (14:33)
[2021-07-04] MEDS: Vancomycin 1,250 MG/262.5 ML IV.SOLN IVPB SCH (14:34)
[2021-07-05] MEDS: Vancomycin 1,250 MG/262.5 ML IV.SOLN IVPB SCH ×2 (03:05→14:43)
[2021-07-05] MEDS: Metoprolol XL (24 HR) Succ 25 MG TAB.ER.24H PO SCH ×2 (03:05→09:00)
[2021-07-05 03:47] LABS: Mean Corpuscular HGB Conc 32.9 g/dL (31.6-35.5); Red Cell Distribution Width 15.7 % (11.5-14.5)
[2021-07-05 03:50] LABS: Hematocrit 35.9 % (37.5-50.1); Hemoglobin 11.8 g/dL (12.9-16.9); Immature Platelets 16.5 % (1.1-6.1); Mean Corpuscular Hemoglobin 28.7 pg (28.0-33.3); Mean Corpuscular Volume 87.3 fL (83.0-100.0); Mean Platelet Volume 12.7 fL (9.4-12.4); Red Blood Count 4.11 M/mcL (4.19-5.50); White Blood Count 6.7 K/mcL (4.3-11.1)
[2021-07-05 04:04] LABS: BUN/Creatinine Ratio 17 (6-26); Blood Urea Nitrogen 11 mg/dL (8-23); Calcium 8.7 mg/dL (8.6-10.3); Carbon Dioxide 26 mEq/L (23-29); Chloride 105 mEq/L (98-107); Glucose 181 mg/dL (70-105); Osmolality,Calculated 278 (280-300); Potassium 3.7 mEq/L (3.5-5.1); Sodium 132 mEq/L (136-145); eGFR For African Americans > 60 (> 60); eGFR For Non-African Americans > 60 (> 60)
[2021-07-05] MEDS: carvediloL 6.25 MG TABLET PO SCH ×2 (08:00→20:54)
[2021-07-05] MEDS ORDERED: Metoprolol XL (24 HR) Succ 25 MG TAB.ER.24H PO SCH (09:00)
[2021-07-05] MEDS: allopurinoL 300 MG TABLET PO SCH (10:33)
[2021-07-05] MEDS: sulfaSALAzine 500 MG TABLET PO SCH ×2 (10:33→20:51)
[2021-07-05] MEDS: Aspirin 81 MG TAB.CHEW PO SCH (10:33)
[2021-07-05] MEDS: Sacubitril/Valsartan 49/51 MG 1 TABLET PO SCH ×2 (10:35→20:51)
[2021-07-05] MEDS: Nicotine 21 MG PATCH.TD24 TD SCH (10:35)
[2021-07-05] MEDS: Loratadine 10 MG TABLET PO SCH (10:35)
[2021-07-05] MEDS: Insulin LISPRO 300 UNITS/3 ML VIAL SUBQ SCH ×3 (10:42→20:54)
[2021-07-05] MEDS ORDERED: Benzonatate 100 MG CAPSULE PO PRN (14:06)
[2021-07-05] MEDS ORDERED: Vancomycin 500 MG in 0.9 % Sodium Chloride Mini Bag 100 ML IVPB ONE (16:30)
[2021-07-06] MEDS: Vancomycin 1,750 MG/517.5 ML IV.SOLN IVPB SCH ×2 (03:29→16:03)
[2021-07-06] MEDS: Insulin LISPRO 300 UNITS/3 ML VIAL SUBQ SCH ×3 (09:23→17:16)
[2021-07-06] MEDS: Loratadine 10 MG TABLET PO SCH (09:26)
[2021-07-06] MEDS: sulfaSALAzine 500 MG TABLET PO SCH ×2 (09:26→21:56)
[2021-07-06] MEDS: Aspirin 81 MG TAB.CHEW PO SCH (09:26)
[2021-07-06] MEDS: Nicotine 21 MG PATCH.TD24 TD SCH (09:27)
[2021-07-06] MEDS: allopurinoL 300 MG TABLET PO SCH (09:27)
[2021-07-06 11:50] LABS: BUN/Creatinine Ratio 8 (6-26); Blood Urea Nitrogen 6 mg/dL (8-23); eGFR For African Americans > 60 (> 60); eGFR For Non-African Americans > 60 (> 60)
[2021-07-06] MEDS: Sacubitril/Valsartan 49/51 MG 1 TABLET PO SCH ×2 (12:16→21:56)
[2021-07-06] MEDS: Metoprolol XL (24 HR) Succ 25 MG TAB.ER.24H PO SCH (12:16)
[2021-07-06] MEDS ORDERED: Perflutren Lipid Microsphere 1.3 ML in 0.9 % Sodium Chloride 8.7 ML IVP PRN (12:44)
[2021-07-07 02:28] LABS: Basophils # 0.1 K/mcL (0.0-0.2); Basophils % 0.6 %; Eosinophils # 0.1 K/mcL (0.0-0.6); Eosinophils % 0.5 %; Hematocrit 37.4 % (37.5-50.1); Hemoglobin 12.2 g/dL (12.9-16.9); Immature Granulocytes % 0.6 % (0-4); Immature Platelets 11.9 % (1.1-6.1); Lymphocytes % 7.8 %; Mean Corpuscular HGB Conc 32.6 g/dL (31.6-35.5); Mean Corpuscular Hemoglobin 28.3 pg (28.0-33.3); Mean Corpuscular Volume 86.8 fL (83.0-100.0); Mean Platelet Volume 12.3 fL (9.4-12.4); Monocytes # 1.6 K/mcL (0.0-1.3); Monocytes % 12.1 %; Neutrophils # 10.1 K/mcL (1.6-8.9); Red Blood Count 4.31 M/mcL (4.19-5.50); Red Cell Distribution Width 15.9 % (11.5-14.5); Segmented Neutrophils % 78.4 %; White Blood Count 12.9 K/mcL (4.3-11.1)
[2021-07-07 02:48] LABS: BUN/Creatinine Ratio 10 (6-26); Blood Urea Nitrogen 9 mg/dL (8-23); Calcium 8.5 mg/dL (8.6-10.3); Carbon Dioxide 24 mEq/L (23-29); Chloride 102 mEq/L (98-107); Glucose 213 mg/dL (70-105); Osmolality,Calculated 281 (280-300); Potassium 4.1 mEq/L (3.5-5.1); Sodium 133 mEq/L (136-145); eGFR For African Americans > 60 (> 60); eGFR For Non-African Americans > 60 (> 60)
[2021-07-07] MEDS: Vancomycin 1,750 MG/517.5 ML IV.SOLN IVPB SCH ×2 (03:10→22:03)
[2021-07-07 03:19] LABS: Platelet Count 60 K/mcL (140-400)
[2021-07-07] MEDS: Sacubitril/Valsartan 49/51 MG 1 TABLET PO SCH ×2 (08:38→20:19)
[2021-07-07] MEDS: sulfaSALAzine 500 MG TABLET PO SCH ×2 (08:38→20:19)
[2021-07-07] MEDS: Metoprolol XL (24 HR) Succ 25 MG TAB.ER.24H PO SCH (08:38)
[2021-07-07] MEDS: Loratadine 10 MG TABLET PO SCH (08:38)
[2021-07-07] MEDS: allopurinoL 300 MG TABLET PO SCH (08:38)
[2021-07-07] MEDS: Aspirin 81 MG TAB.CHEW PO SCH (08:38)
[2021-07-07] MEDS: Nicotine 21 MG PATCH.TD24 TD SCH (08:39)
[2021-07-07] MEDS: Insulin LISPRO 300 UNITS/3 ML VIAL SUBQ SCH ×3 (08:40→17:08)
[2021-07-07] MEDS ORDERED: Isovue-370 500 ML BOTTLE IVP ONE (15:36)
[2021-07-07] MEDS: cefTRIAXone 2,000 MG in 0.9 % Sodium Chloride Mini Bag 100 ML IVPB SCH (17:08)
[2021-07-07] MEDS: Ampicillin 2,000 MG in 0.9 % Sodium Chloride Mini Bag 100 ML IVPB SCH ×3 (17:09→23:35)
[2021-07-07] MEDS: carvediloL 6.25 MG TABLET PO SCH (22:03)
[2021-07-08 02:11] LABS: Basophils % 0.5 %; Immature Granulocytes % 0.9 % (0-4)
[2021-07-08 02:13] LABS: Basophils # 0.1 K/mcL (0.0-0.2); Eosinophils # 0.1 K/mcL (0.0-0.6); Eosinophils % 0.9 %; Hematocrit 34.1 % (37.5-50.1); Hemoglobin 11.5 g/dL (12.9-16.9); Immature Platelets 11.6 % (1.1-6.1); Lymphocytes # 1.1 K/mcL (0.6-4.6); Lymphocytes % 8.5 %; Mean Corpuscular HGB Conc 33.7 g/dL (31.6-35.5); Mean Corpuscular Hemoglobin 29.4 pg (28.0-33.3); Mean Corpuscular Volume 87.2 fL (83.0-100.0); Mean Platelet Volume 12.2 fL (9.4-12.4); Monocytes # 1.4 K/mcL (0.0-1.3); Monocytes % 10.7 %; Neutrophils # 10.1 K/mcL (1.6-8.9); Red Blood Count 3.91 M/mcL (4.19-5.50); Red Cell Distribution Width 16.1 % (11.5-14.5); Segmented Neutrophils % 78.5 %; White Blood Count 12.9 K/mcL (4.3-11.1)
[2021-07-08 02:16] LABS: Platelet Count 66 K/mcL (140-400)
[2021-07-08 02:17] LABS: Calcium 8.4 mg/dL (8.6-10.3); Potassium 4.1 mEq/L (3.5-5.1)
[2021-07-08] MEDS ORDERED: 0.9 % Sodium Chloride 1,000 ML ONE (03:06)
[2021-07-08] MEDS: Ampicillin 2,000 MG in 0.9 % Sodium Chloride Mini Bag 100 ML IVPB SCH ×5 (03:17→23:04)
[2021-07-08] MEDS: Insulin LISPRO 300 UNITS/3 ML VIAL SUBQ SCH ×3 (08:38→16:54)
[2021-07-08] MEDS: cefTRIAXone 2,000 MG in 0.9 % Sodium Chloride Mini Bag 100 ML IVPB SCH (08:39)
[2021-07-08] MEDS: allopurinoL 300 MG TABLET PO SCH (08:42)
[2021-07-08] MEDS: Loratadine 10 MG TABLET PO SCH (08:43)
[2021-07-08] MEDS: Aspirin 81 MG TAB.CHEW PO SCH (08:43)
[2021-07-08] MEDS: Nicotine 21 MG PATCH.TD24 TD SCH (08:43)
[2021-07-08] MEDS: Sacubitril/Valsartan 49/51 MG 1 TABLET PO SCH (08:50)
[2021-07-08] MEDS: Metoprolol XL (24 HR) Succ 25 MG TAB.ER.24H PO SCH (08:50)
[2021-07-08] MEDS: sulfaSALAzine 500 MG TABLET PO SCH ×2 (08:51→19:46)
[2021-07-08] MEDS ORDERED: Lidocaine Viscous Oral Soln 15 ML SOLUTION MM PRN (11:54)
[2021-07-08] MEDS ORDERED: 0.9 % Sodium Chloride 500 ML IVC ONE (11:55)
[2021-07-08] MEDS: *HR* Midazolam HCl 5 MG/5 ML VIAL IVP PRN ×2 (12:23→12:25)
[2021-07-08] MEDS: *HR* FentaNYL (PF) 100 MCG/2 ML VIAL IVP PRN ×2 (12:23→12:25)
[2021-07-08] MEDS: 0.9 % Sodium Chloride 1,000 ML IVC SCH ×2 (13:42→22:18)
[2021-07-08 23:42] VITALS: BP 128/62; PULSE 64; TEMP 98.3; O2SAT 98
== END 2021-07-09 03:45 | disposition short-term general hospital (02) | DRG 280 ==
LOC: 2NNU → 2NENU 07-03 20:35
PROVIDERS: ADMIT Internal Medicine; ATTEND Internal Medicine